=== PATIENT | female | born 1975 | race Caucasian/White ===

== ENCOUNTER 2018-08-23 09:52 | Inpatient (IN) | payer OTHER, MEDICAID, SELFPAY ==
[2018-08-23] VITALS (11 sets, daily range): BP systolic 111–141; BP diastolic 64–96; PULSE 92–120; RESP 16–27; TEMP 36.5–37.6; O2SAT 97–100; BMI 252.9; BMI 18.9
--- NOTE | 2018-08-23 09:57 | ED.NAVMDI ---
HPI - Nausea/Vomiting/Diarrhea General Chief complaint: Toxicology Problem Stated complaint: trouble breathing,throwing up Time Seen by Provider: 08/23/18 09:54 Source: patient and family Mode of arrival: ambulatory Limitations: no limitations History of Present Illness HPI Narrative: 43-year-old female smoker with history of heavy alcohol abuse and daily vomiting presents with the chief complaint agitation, tachycardia classic symptoms of withdrawal. She states that for quite some time she has been drinking 4-5 mixed drinks every day. She has not measure the amount of alcohol per drink but just pours and vodka. She states that she had her last drink about 48 hours ago and she would be continuing to drink except she can't stop vomiting. She frequently vomits daily but ran out of her antinausea medications. She has never gone through withdrawal before and has only been to detox once. Her primary care provider is in [place]. She complains headache and agitation as well as resting tremors, generalized abdominal pain nausea, vomiting and auditory, visual and dermatologic hallucinations. She denies any blood in her vomit nor dark stools MD complaint: nausea, vomiting and abdominal pain Onset (ago): hour(s) Description of Vomiting: watery Description of Diarrhea: none Associated Abdominal Pain: Yes Location of pain: diffuse Severity: moderate Quality: cramping and aching Pain Consistency: intermittent Relieving factors: none Exacerbating factors: eating Context: alcohol abuse Associated symptoms: headaches, loss of appetite, nausea/vomiting, anxiety and fatigue Related Data Home Medications Medication Instructions Recorded Confirmed hydroxyzine HCl 1 - 2 tab PO BID PRN 08/23/18 08/23/18 Allergies Allergy/AdvReac Type Severity Reaction Status Date / Time No Known Drug Allergies Allergy Verified 08/23/18 10:04 Review of Systems Constitutional Denies chills, Denies fever(s), Reports lethargy, Reports poor appetite and Reports weakness Eyes Denies change in vision, Denies eye discharge, Denies irritation and Denies loss of vision ENT Ears, Nose, Mouth, and Throat: Denies change in voice, Denies neck pain and Denies sore throat Cardiovascular Denies chest pain, Denies irregular heart rhythm, Denies lightheadedness, Reports palpitations, Reports dyspnea, Denies dyspnea on exertion and Denies orthopnea Respiratory Denies cough, Reports dyspnea, Denies dyspnea on exertion and Denies wheezing Gastrointestinal Gastrointestinal: Reports abdominal pain, Denies change in bowel habits, Denies diarrhea, Reports nausea and Reports vomiting Genitourinary Denies hematuria, Denies flank pain, Denies urinary incontinence and Denies urinary urgency Musculoskeletal Denies neck pain Integumentary/Breasts Denies pruritus, Denies erythema, Denies rash and Denies wounds Neurologic Denies confusion, Denies loss of vision and Reports weakness Psychiatric Reports anxiety, Denies confusion, Denies depression, Denies homicidal ideation and Denies suicidal ideation Endocrine Reports palpitations Hematologic/Lymphatic Denies easy bruising Allergic/Immunologic Denies wheezing [facility] Medical History ETOH abuse (Acute) Social History household members: spouse Smoking Status: Current every day smoker Exam Narrative Exam Narrative: GENERAL: 43-year-old female is disheveled and unkempt, tremulous, agitated and anxious HEAD: Atraumatic. Normocephalic. No temporal or scalp tenderness. EYES: Pupils equal round and reactive. Extraocular motions intact. No scleral icterus. No injection or drainage. ENT: Dry mucous membranes Nose without bleeding, purulent drainage or septal hematoma. Throat without erythema, tonsillar hypertrophy or exudate. Uvula midline. Airway patent. NECK: Trachea midline. No JVD or lymphadenopathy. Supple, nontender, no meningeal signs. CARDIOVASCULAR: Tachycardic but regular rhythm without murmurs, gallops, or rubs. RESPIRATORY: Clear to auscultation. Breath sounds equal bilaterally. No wheezes, rales, or rhonchi. GASTROINTESTINAL: Abdomen soft, generalized tenderness, nondistended. No hepato-splenomegaly, or palpable masses. No guarding. EXTREMITIES: No clubbing, cyanosis, or edema. No joint tenderness, effusion, or edema noted. BACK: Nontender without deformity or crepitance. No flank tenderness. NEURO: AOx3. SKIN: No rash or erythema. Diaphoresis Initial Vital Signs Initial Vital Signs: Vital Signs Temperature 98.4 F 08/23/18 09:53 Pulse Rate 120 H 08/23/18 09:53 Respiratory Rate 20 08/23/18 09:53 Blood Pressure 138/96 H 08/23/18 09:53 Pulse Oximetry 100 08/23/18 09:53 Course Course Narrative: Mesha for Alcohol Withdrawal from [facility] on 08/23/2018 All calculations should be rechecked by clinician prior to use RESULT SUMMARY: 33 points Patients with scores ?20 frequently require medication for withdrawal, and may also require admission to the ICU for observation for seizures or development of delirium tremens, and more frequent medication dosing. INPUTS: Nausea/vomiting ?> 5 = (More severe symptoms) Tremor ?> 4 = Moderate, with patient's arms extended Paroxysmal sweats ?> 3 = (More severe symptoms) Anxiety ?> 5 = (More severe symptoms) Agitation ?> 4 = Moderately fidgety and restless Tactile disturbances ?> 3 = Moderate itching, pin and needles, burning, or numbness Auditory disturbances ?> 3 = Moderate harshness or ability or frighten Visual disturbances ?> 2 = Mild sensitivity Headache/fullness in head ?> 3 = Moderate Orientation/clouding of sensorium ?> 1 = Can't do serial additions or is uncertain about date Orders Ordered: ED Orders 08/23/18 10:07 XR chest 1V Stat EKG-12 Lead Routine 08/23/18 11:00 A1C [Hemoglobin A1C %] Routine Complete Blood Count AUTO DIFF Stat Comprehensive Metabolic Panel Stat Ethanol (ETOH) Stat Hepatic (Liver) Panel Stat Lipase Stat Magnesium Stat Prothrombin Time INR Stat 08/23/18 12:20 ABG [Arterial Blood Gas] Stat 08/23/18 13:04 Urine Drug Screen, Rapid Stat 08/23/18 13:06 Ictotest Urine Stat Urinalysis and Microscopic Stat 08/23/18 13:37 Education, smoking cessation ONGOING 08/23/18 13:40 Consult to Dietitian, Adult Routine 08/23/18 13:41 Consult to Physical Therapy Evaluate & Treat 08/23/18 15:13 Consult to Dietitian, Adult Routine Consult to Credit And Collections Analyst Routine 08/23/18 20:00 Basic Metabolic Panel Stat 08/24/18 05:00 Complete Blood Count AUTO DIFF Routine Comprehensive Metabolic Panel Routine Acetaminophen (Tylenol) 650 mg PO Q6HR PRN PRN Reason: As Needed for Fever/Mild Pain Calcium Carbonate (Tums) 1,000 mg PO Q4HR PRN PRN Reason: Dyspepsia Last Admin: 08/23/18 14:30 Dose: 1,000 mg Enoxaparin Sodium (Lovenox) 40 mg SUBCUT DAILY [facility] Haloperidol (Haldol) 5 mg IV Q4HR PRN PRN Reason: Delerium Dextrose/Sodium Chloride (Dextrose 5%-0.9% Ns) 1,000 mls @ 200 mls/hr IV CONT [facility] Last Admin: 08/23/18 14:30 Dose: 200 mls/hr Ibuprofen (Advil) 600 mg PO Q6HR PRN PRN Reason: As Needed for Fever/Mild Pain Lorazepam (Ativan) 1 mg PO Q12HR [facility] Morphine Sulfate (Morphine) 2 mg IV Q4HR PRN PRN Reason: Pain, Moderate (4-6) Naloxone HCl (Narcan) 0.2 mg IV Q2MIN PRN PRN Reason: Opiate Reversal Ondansetron HCl (Zofran Odt) 4 mg PO Q8HR PRN PRN Reason: Nausea And Vomiting Ondansetron HCl (Zofran) 4 mg IV Q8HR PRN PRN Reason: Nausea And Vomiting Last Admin: 08/23/18 14:30 Dose: 4 mg Pantoprazole Sodium (Protonix) 40 mg IV DAILY [facility] Last Admin: 08/23/18 14:30 Dose: 40 mg Discontinued Medications Sodium Chloride (Normal Saline 0.9%) 1,000 mls @ 1,000 mls/hr IV BOLUS ONE Stop: 08/23/18 11:05 Last Infusion: 08/23/18 12:47 Dose: 0 mls/hr Infusion: 08/23/18 11:32 Dose: 1,000 mls/hr Infusion: 08/23/18 11:15 Dose: 300 mls/hr Admin: 08/23/18 11:10 Dose: 1,000 mls/hr Thiamine HCl 100 mg/ Dextrose 51 mls @ 204 mls/hr IV NOW ONE Stop: 08/23/18 10:07 Last Infusion: 08/23/18 11:32 Dose: 0 mls/hr Admin: 08/23/18 11:10 Dose: 204 mls/hr Sodium Chloride (Normal Saline 0.9%) 1,000 mls @ 1,000 mls/hr IV BOLUS ONE Stop: 08/23/18 13:10 Last Infusion: 08/23/18 14:06 Dose: 0 mls/hr Admin: 08/23/18 12:50 Dose: 1,000 mls/hr Lorazepam (Ativan) 2 mg IV NOW ONE Stop: 08/23/18 10:07 Last Admin: 08/23/18 11:10 Dose: 2 mg Ondansetron HCl (Zofran) 4 mg IV NOW ONE Stop: 08/23/18 11:17 Last Admin: 08/23/18 11:17 Dose: 4 mg Thiamine HCl (Vitamin B-1) 100 mg IM DAILY [facility] Last Admin: 08/23/18 14:30 Dose: Not Given Vital Signs - 8 hr 08/23/18 09:53 08/23/18 10:30 08/23/18 11:11 Temperature 98.4 F Pulse Rate 120 H 115 H 107 H Respiratory Rate 20 18 16 Blood Pressure 138/96 H Blood Pressure [Left Arm] 141/89 H 139/89 Pulse Oximetry 100 100 99 08/23/18 11:33 08/23/18 12:00 08/23/18 12:45 Temperature Pulse Rate 113 H 118 H 112 H Respiratory Rate 26 H 20 25 H Blood Pressure Blood Pressure [Left Arm] 135/64 130/89 124/91 H Pulse Oximetry 100 99 100 08/23/18 13:00 08/23/18 13:30 Temperature Pulse Rate 110 H 110 H Respiratory Rate 22 20 Blood Pressure Blood Pressure [Left Arm] 127/84 116/84 Pulse Oximetry 100 97 MDM - Nausea/Vomiting/Diarrhea Lab Data Result diagrams: 08/23/18 11:00 08/23/18 11:00 Lab Results 08/23/18 08/23/18 08/23/18 Range/Units 11:00 11:00 11:00 WBC 15.7 H (4.5-11.0) X10^3/uL RBC 4.11 (4.0-5.2) X10^6/uL Hgb 13.8 (12.0-16.0) g/dL Hct 42.2 (36-46) % MCV 102.7 H (80-100) fL MCH 33.5 (26-34) PG MCHC 32.6 (30-36) % RDW 13.4 (11.6-14.8) % Plt Count 230 (150-400) X10^3/uL Neut % (Auto) 89.8 H (50-75) % Lymph % (Auto) 5.3 L (25-40) % Grady % (Auto) 4.5 (3-14) % Eos % (Auto) 0.0 L (2-4) % Baso % (Auto) 0.4 (0-2) % Neut # (Auto) 37661 H (8621-3589) /uL Lymph # (Auto) 800 L (9062-1672) /uL Grady # (Auto) 700 (0-900) /uL Eos # (Auto) 0 (0-450) /uL Baso # (Auto) 100 (0-100) /uL PT 9.8 L (10.1-12.7) SECONDS INR 0.9 (0.9-1.3) ABG pH (7.35-7.45) ABG pCO2 (35-45) mmHg ABG pO2 (80-100) mmHg ABG HCO3 (22-26) mmol/L ABG Total CO2 (21-31) mmol/L ABG O2 Saturation (95-100) % ABG Base Excess (-2-2) mmol/L FiO2 Sodium 138 (137-145) mmol/L Potassium 5.7 H (3.4-5.1) mmol/L Chloride 95 L (98-107) mmol/L Carbon Dioxide 7 L* (22-32) mmol/L BUN 25 H (7-17) mg/dL Creatinine 1.70 H (0.52-1.04) mg/dL Estimated GFR 33.1 L (>60) mL/min BUN/Creatinine Ratio 14.7 (6-22) Glucose 276 H (70-100) mg/dL Hemoglobin A1c (4.0-6.0) % Calcium 8.3 L (8.4-10.2) mg/dL Magnesium 2.2 (1.6-2.3) mg/dL Total Bilirubin 1.1 (0.2-1.3) mg/dL Conjugated Bilirubin 0.0 (0.0-0.3) md/dL Unconjugated Bilirubin 0.6 (0.0-1.1) mg/dL AST 108 H (14-36) IU/L ALT 70 H (9-52) IU/L Alkaline Phosphatase 73 (38-126) U/L Total Protein 8.8 H (6.3-8.2) g/dL Albumin 5.5 H (3.5-5.0) g/dL Globulin 3.3 (1.7-4.1) g/dL Albumin/Globulin Ratio 1.7 (1.0-2.8) Lipase 55 (23-300) U/L Urine Color Urine Appearance Urine pH (4.5-8.0) Ur Specific [place] (1.000-1.035) Urine Protein (Negative) Urine Glucose (UA) (Negative) g/dL Urine Ketones (NEGATIVE) Urine Occult Blood (Negative) Urine Nitrate (Negative) Urine Bilirubin (NEGATIVE) Urine Ictotest (Negative) Urine Urobilinogen (0.2) E.U./dL Ur Leukocyte Esterase (NEGATIVE) Urine RBC (0-5/HPF) Urine WBC (0-5/HPF) Ur Squamous Epith Cells (0-5/HPF) Amorphous Sediment Urine Bacteria (None) Ur Culture Indicated? Urine Opiates Screen (Negative) Ur Oxycodone Screen (Negative) Urine Methadone Screen (Negative) Ur Barbiturates Screen (Negative) U Tricyclic Antidepress (Negative) Ur Phencyclidine Scrn (Negative) Ur Amphetamines Screen (Negative) U Methamphetamines Scrn (Negative) Ur MDMA Scrn (Ecstasy) (Negative) U Benzodiazepines Scrn (Negative) Urine Cocaine Screen (Negative) U Marijuana (THC) Screen (Negative) Ethyl Alcohol < 10 mg/dL 08/23/18 08/23/18 08/23/18 Range/Units 11:00 12:20 13:04 WBC (4.5-11.0) X10^3/uL RBC (4.0-5.2) X10^6/uL Hgb (12.0-16.0) g/dL Hct (36-46) % MCV (80-100) fL MCH (26-34) PG MCHC (30-36) % RDW (11.6-14.8) % Plt Count (150-400) X10^3/uL Neut % (Auto) (50-75) % Lymph % (Auto) (25-40) % [place]ady % (Auto) (3-14) % Eos % (Auto) (2-4) % Baso % (Auto) (0-2) % Neut # (Auto) (9964-5636) /uL Lymph # (Auto) (4905-1968) /uL [place]ady # (Auto) (0-900) /uL Eos # (Auto) (0-450) /uL Baso # (Auto) (0-100) /uL PT (10.1-12.7) SECONDS INR (0.9-1.3) ABG pH 7.23 L* (7.35-7.45) ABG pCO2 14.8 L* (35-45) mmHg ABG pO2 127 H (80-100) mmHg ABG HCO3 6 L (22-26) mmol/L ABG Total CO2 7 L (21-31) mmol/L ABG O2 Saturation 98 (95-100) % ABG Base Excess -21.0 L (-2-2) mmol/L FiO2 21 Sodium (137-145) mmol/L Potassium (3.4-5.1) mmol/L Chloride (98-107) mmol/L Carbon Dioxide (22-32) mmol/L BUN (7-17) mg/dL Creatinine (0.52-1.04) mg/dL Estimated GFR (>60) mL/min BUN/Creatinine Ratio (6-22) Glucose (70-100) mg/dL Hemoglobin A1c 5.1 (4.0-6.0) % Calcium (8.4-10.2) mg/dL Magnesium (1.6-2.3) mg/dL Total Bilirubin (0.2-1.3) mg/dL Conjugated Bilirubin (0.0-0.3) md/dL Unconjugated Bilirubin (0.0-1.1) mg/dL AST (14-36) IU/L ALT (9-52) IU/L Alkaline Phosphatase (38-126) U/L Total Protein (6.3-8.2) g/dL Albumin (3.5-5.0) g/dL Globulin (1.7-4.1) g/dL Albumin/Globulin Ratio (1.0-2.8) Lipase (23-300) U/L Urine Color Urine Appearance Urine pH (4.5-8.0) Ur Specific [place] (1.000-1.035) Urine Protein (Negative) Urine Glucose (UA) (Negative) g/dL Urine Ketones (NEGATIVE) Urine Occult Blood (Negative) Urine Nitrate (Negative) Urine Bilirubin (NEGATIVE) Urine Ictotest (Negative) Urine Urobilinogen (0.2) E.U./dL Ur Leukocyte Esterase (NEGATIVE) Urine RBC (0-5/HPF) Urine WBC (0-5/HPF) Ur Squamous Epith Cells (0-5/HPF) Amorphous Sediment Urine Bacteria (None) Ur Culture Indicated? Urine Opiates Screen Negative (Negative) Ur Oxycodone Screen Negative (Negative) Urine Methadone Screen Negative (Negative) Ur Barbiturates Screen Negative (Negative) U Tricyclic Antidepress Negative (Negative) Ur Phencyclidine Scrn Negative (Negative) Ur Amphetamines Screen Negative (Negative) U Methamphetamines Scrn Negative (Negative) Ur MDMA Scrn (Ecstasy) Negative (Negative) U Benzodiazepines Scrn Negative (Negative) Urine Cocaine Screen Negative (Negative) U Marijuana (THC) Screen Positive H (Negative) Ethyl Alcohol mg/dL 08/23/18 Range/Units 13:06 WBC (4.5-11.0) X10^3/uL RBC (4.0-5.2) X10^6/uL Hgb (12.0-16.0) g/dL Hct (36-46) % MCV (80-100) fL MCH (26-34) PG MCHC (30-36) % RDW (11.6-14.8) % Plt Count (150-400) X10^3/uL Neut % (Auto) (50-75) % Lymph % (Auto) (25-40) % [place] % (Auto) (3-14) % Eos % (Auto) (2-4) % Baso % (Auto) (0-2) % Neut # (Auto) (9855-0031) /uL Lymph # (Auto) (6206-3167) /uL [place] # (Auto) (0-900) /uL Eos # (Auto) (0-450) /uL Baso # (Auto) (0-100) /uL PT (10.1-12.7) SECONDS INR (0.9-1.3) ABG pH (7.35-7.45) ABG pCO2 (35-45) mmHg ABG pO2 (80-100) mmHg ABG HCO3 (22-26) mmol/L ABG Total CO2 (21-31) mmol/L ABG O2 Saturation (95-100) % ABG Base Excess (-2-2) mmol/L FiO2 Sodium (137-145) mmol/L Potassium (3.4-5.1) mmol/L Chloride (98-107) mmol/L Carbon Dioxide (22-32) mmol/L BUN (7-17) mg/dL Creatinine (0.52-1.04) mg/dL Estimated GFR (>60) mL/min BUN/Creatinine Ratio (6-22) Glucose (70-100) mg/dL Hemoglobin A1c (4.0-6.0) % Calcium (8.4-10.2) mg/dL Magnesium (1.6-2.3) mg/dL Total Bilirubin (0.2-1.3) mg/dL Conjugated Bilirubin (0.0-0.3) md/dL Unconjugated Bilirubin (0.0-1.1) mg/dL AST (14-36) IU/L ALT (9-52) IU/L Alkaline Phosphatase (38-126) U/L Total Protein (6.3-8.2) g/dL Albumin (3.5-5.0) g/dL Globulin (1.7-4.1) g/dL Albumin/Globulin Ratio (1.0-2.8) Lipase (23-300) U/L Urine Color Yellow Urine Appearance Clear Urine pH 5.5 (4.5-8.0) Ur Specific [place] 1.025 (1.000-1.035) Urine Protein 1+ H (Negative) Urine Glucose (UA) Negative (Negative) g/dL Urine Ketones 3+ H (NEGATIVE) Urine Occult Blood 1+ H (Negative) Urine Nitrate Negative (Negative) Urine Bilirubin 1+ H (NEGATIVE) Urine Ictotest Negative (Negative) Urine Urobilinogen 0.2 (0.2) E.U./dL Ur Leukocyte Esterase Negative (NEGATIVE) Urine RBC 0-1/hpf (0-5/HPF) Urine WBC 0-1/hpf (0-5/HPF) Ur Squamous Epith Cells 0-1 /hpf (0-5/HPF) Amorphous Sediment 1+ Urine Bacteria None seen (None) Ur Culture Indicated? Cult not indicated Urine Opiates Screen (Negative) Ur Oxycodone Screen (Negative) Urine Methadone Screen (Negative) Ur Barbiturates Screen (Negative) U Tricyclic Antidepress (Negative) Ur Phencyclidine Scrn (Negative) Ur Amphetamines Screen (Negative) U Methamphetamines Scrn (Negative) Ur MDMA Scrn (Ecstasy) (Negative) U Benzodiazepines Scrn (Negative) Urine Cocaine Screen (Negative) U Marijuana (THC) Screen (Negative) Ethyl Alcohol mg/dL Imaging Data Chest x-ray: Radiologist's impression: [address] [id number] XRay Report Signed Patient: Cristal Matias JMR#: [id number] : 1975Acct:[id number] Age/Sex: 43 / FDate of Service: 08/23/18 Loc: ED Accession Number: [id number] Procedure: XR chest 1V Ordering Provider: Aidan Grey D.O. PROCEDURE: XR CHEST 1V INDICATIONS: tachycardia, SOB TECHNIQUE: One view of the chest was acquired. COMPARISON: None. FINDINGS: Surgical changes and devices: None. Lungs and pleura: Lungs are clear. No pleural effusions or pneumothorax. Mediastinum: Mediastinal contours appear normal. Heart size is normal. Mild prominence of pulmonary vasculature noted. Bones and chest wall: Cervical spinal fusion hardware noted. IMPRESSION: No acute cardiopulmonary disease. Dictated by: Zohaib Rhoades M.D. on 08/23/2018 at 10:42 Approved by: Zohaib Rhoades M.D. on 08/23/2018 at 10:43 ECG Data Attestation: I personally reviewed and interpreted this ECG as follows: Prior ECG tracings: not available for review Interpretation: EKG is a sinus tachycardia with rate [117 ] and free of any signs of ischemia or ectopy. No ST segmental elevation or depression. No T wave inversions Critical Care Time Critical Care Time: Yes Total Critical Care Time: 30 Attestation: The high probability of a clinically significant, sudden or life threatening deterioration of the [cardiovascular] system(s) required my full and direct attention, intervention and personal management. The aggregate critical care time was [30] minutes. 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
--- NOTE | 2018-08-23 10:07 | DI.RAD.S_ITS ---
PROCEDURE: XR CHEST 1V INDICATIONS: tachycardia, SOB TECHNIQUE: One view of the chest was acquired. COMPARISON: None. FINDINGS: Surgical changes and devices: None. Lungs and pleura: Lungs are clear. No pleural effusions or pneumothorax. Mediastinum: Mediastinal contours appear normal. Heart size is normal. Mild prominence of pulmonary vasculature noted. Bones and chest wall: Cervical spinal fusion hardware noted. IMPRESSION: No acute cardiopulmonary disease. Dictated by: Zohaib Rhoades M.D. on 08/23/2018 at 10:42 Approved by: Zohaib Rhoadse M.D. on 08/23/2018 at 10:43
--- NOTE | 2018-08-23 10:11 | ED_ITS ---
HPI - Nausea/Vomiting/Diarrhea General Chief complaint: Toxicology Problem Stated complaint: trouble breathing,throwing up Time Seen by Provider: 08/23/18 09:54 Source: patient and family Mode of arrival: ambulatory Limitations: no limitations History of Present Illness HPI Narrative: 43-year-old female smoker with history of heavy alcohol abuse and daily vomiting presents with the chief complaint agitation, tachycardia classic symptoms of withdrawal. She states that for quite some time she has been drinking 4-5 mixed drinks every day. She has not measure the amount of alcohol per drink but just pours and vodka. She states that she had her last drink about 48 hours ago and she would be continuing to drink except she can't stop vomiting. She frequently vomits daily but ran out of her antinausea medicati ons. She has never gone through withdrawal before and has only been to detox once. Her primary care provider is in [place]. She complains headache and agitation as well as resting tremors, generalized abdominal pain nausea, vomiting and auditory, visual and dermatologic hallucinations. She denies any blood in her vomit nor dark stools MD complaint: nausea, vomiting and abdominal pain Onset (ago): hour(s) Description of Vomiting: watery Description of Diarrhea: none Associated Abdominal Pain: Yes Location of pain: diffuse Severity: moderate Quality: cramping and aching Pain Consistency: intermittent Relieving factors: none Exacerbating factors: eating Context: alcohol abuse Associated symptoms: headaches, loss of appetite, nausea/vomiting, anxiety and fatigue Related Data Home Medications Medication Instructions Recorded Confirmed hydroxyzine HCl 1 - 2 tab PO BID PRN 08/23/18 08/23/18 Allergies Allergy/AdvReac Type Severity Reaction Status Date / Time No Known Drug Allergies Allergy Verified 08/23/18 10:04 Review of Systems Constitutional Denies chills, Denies fever(s), Reports lethargy, Reports poor appetite and Reports weakness Eyes Denies change in vision, Denies eye discharge, Denies irritation and Denies loss of vision ENT Ears, Nose, Mouth, and Throat: Denies change in voice, Denies neck pain and Denies sore throat Cardiovascular Denies chest pain, Denies irregular heart rhythm, Denies lightheadedness, Reports palpitations, Reports dyspnea, Denies dyspnea on exertion and Denies orthopnea Respiratory Denies cough, Reports dyspnea, Denies dyspnea on exertion and Denies wheezing Gastrointestinal Gastrointestinal: Reports abdominal pain, Denies change in bowel habits, Denies diarrhea, Reports nausea and Reports vomiting Genitourinary Denies hematuria, Denies flank pain, Denies urinary incontinence and Denies urinary urgency Musculoskeletal Denies neck pain Integumentary/Breasts Denies pruritus, Denies erythema, Denies rash and Denies wounds Neurologic Denies confusion, Denies loss of vision and Reports weakness Psychiatric Reports anxiety, Denies confusion, Denies depression, Denies homicidal ideation and Denies suicidal ideation Endocrine Reports palpitations Hematologic/Lymphatic Denies easy bruising Allergic/Immunologic Denies wheezing [facility] Medical History ETOH abuse (Acute) Social History household members: spouse Smoking Status: Current every day smoker Exam Narrative Exam Narrative: GENERAL: 43-year-old female is disheveled and unkempt, tremulous, agitated and anxious HEAD: Atraumatic. Normocephalic. No temporal or scalp tenderness. EYES: Pupils equal round and reactive. Extraocular motions intact. No scleral icterus. No injection or drainage. ENT: Dry mucous membranes Nose without bleeding, purulent drainage or septal hematoma. Throat without erythema, tonsillar hypertrophy or exudate. Uvula midline. Airway patent. NECK: Trachea midline. No JVD or lymphadenopathy. Supple, nontender, no meningeal signs. CARDIOVASCULAR: Tachycardic but regular rhythm without murmurs, gallops, or rubs. RESPIRATORY: Clear to auscultation. Breath sounds equal bilaterally. No wheezes, rales, or rhonchi. GASTROINTESTINAL: Abdomen soft, generalized tenderness, nondistended. No hepato- splenomegaly, or palpable masses. No guarding. EXTREMITIES: No clubbing, cyanosis, or edema. No joint tenderness, effusion, or edema noted. BACK: Nontender without deformity or crepitance. No flank tenderness. NEURO: AOx3. SKIN: No rash or erythema. Diaphoresis Initial Vital Signs Initial Vital Signs: Vital Signs Temperature 98.4 F 08/23/18 09:53 Pulse Rate 120 H 08/23/18 09:53 Respiratory Rate 20 08/23/18 09:53 Blood Pressure 138/96 H 08/23/18 09:53 Pulse Oximetry 100 08/23/18 09:53 Course Course Narrative: [facility] for Alcohol Withdrawal from [employer] on 08/23/2018 All calculations should be rechecked by clinician prior to use RESULT SUMMARY: 33 points Patients with scores ?20 frequently require medication for withdrawal, and may also require admission to the ICU for observation for seizures or development of delirium tremens, and more frequent medication dosing. INPUTS: Nausea/vomiting ?> 5 = (More severe symptoms) Tremor ?> 4 = Moderate, with patient's arms extended Paroxysmal sweats ?> 3 = (More severe symptoms) Anxiety ?> 5 = (More severe symptoms) Agitation ?> 4 = Moderately fidgety and restless Tactile disturbances ?> 3 = Moderate itching, pin and needles, burning, or nu mbness Auditory disturbances ?> 3 = Moderate harshness or ability or frighten Visual disturbances ?> 2 = Mild sensitivity Headache/fullness in head ?> 3 = Moderate Orientation/clouding of sensorium ?> 1 = Can't do serial additions or is uncertain about date Orders Ordered: ED Orders 08/23/18 10:07 XR chest 1V Stat EKG-12 Lead Routine 08/23/18 11:00 A1C [Hemoglobin A1C %] Routine Complete Blood Count AUTO DIFF Stat Comprehensive Metabolic Panel Stat Ethanol (ETOH) Stat Hepatic (Liver) Panel Stat Lipase Stat Magnesium Stat Prothrombin Time INR Stat 08/23/18 12:20 ABG [Arterial Blood Gas] Stat 08/23/18 13:04 Urine Drug Screen, Rapid Stat 08/23/18 13:06 Ictotest Urine Stat Urinalysis and Microscopic Stat 08/23/18 13:37 Education, smoking cessation ONGOING 08/23/18 13:40 Consult to Dietitian, Adult Routine 08/23/18 13:41 Consult to Physical Therapy Evaluate & Treat 08/23/18 15:13 Consult to Dietitian, Adult Routine Consult to Comptroller Routine 08/23/18 20:00 Basic Metabolic Panel Stat 08/24/18 05:00 Complete Blood Count AUTO DIFF Routine Comprehensive Metabolic Panel Routine Acetaminophen (Tylenol) 650 mg PO Q6HR PRN PRN Reason: As Needed for Fever/Mild Pain Calcium Carbonate (Tums) 1,000 mg PO Q4HR PRN PRN Reason: Dyspepsia Last Admin: 08/23/18 14:30 Dose: 1,000 mg Enoxaparin Sodium (Lovenox) 40 mg SUBCUT DAILY [facility] Haloperidol (Haldol) 5 mg IV Q4HR PRN PRN Reason: Delerium Dextrose/Sodium Chloride (Dextrose 5%-0.9% Ns) 1,000 mls @ 200 mls/hr IV CONT [facility] Last Admin: 08/23/18 14:30 Dose: 200 mls/hr Ibuprofen (Advil) 600 mg PO Q6HR PRN PRN Reason: As Needed for Fever/Mild Pain Lorazepam (Ativan) 1 mg PO Q12HR [facility] Morphine Sulfate (Morphine) 2 mg IV Q4HR PRN PRN Reason: Pain, Moderate (4-6) Naloxone HCl (Narcan) 0.2 mg IV Q2MIN PRN PRN Reason: Opiate Reversal Ondansetron HCl (Zofran Odt) 4 mg PO Q8HR PRN PRN Reason: Nausea And Vomiting Ondansetron HCl (Zofran) 4 mg IV Q8HR PRN PRN Reason: Nausea And Vomiting Last Admin: 08/23/18 14:30 Dose: 4 mg Pantoprazole Sodium (Protonix) 40 mg IV DAILY [facility] Last Admin: 08/23/18 14:30 Dose: 40 mg Discontinued Medications Sodium Chloride (Normal Saline 0.9%) 1,000 mls @ 1,000 mls/hr IV BOLUS ONE Stop: 08/23/18 11:05 Last Infusion: 08/23/18 12:47 Dose: 0 mls/hr Infusion: 08/23/18 11:32 Dose: 1,000 mls/hr Infusion: 08/23/18 11:15 Dose: 300 mls/hr Admin: 08/23/18 11:10 Dose: 1,000 mls/hr Thiamine HCl 100 mg/ Dextrose 51 mls @ 204 mls/hr IV NOW ONE Stop: 08/23/18 10:07 Last Infusion: 08/23/18 11:32 Dose: 0 mls/hr Admin: 08/23/18 11:10 Dose: 204 mls/hr Sodium Chloride (Normal Saline 0.9%) 1,000 mls @ 1,000 mls/hr IV BOLUS ONE Stop: 08/23/18 13:10 Last Infusion: 08/23/18 14:06 Dose: 0 mls/hr Admin: 08/23/18 12:50 Dose: 1,000 mls/hr Lorazepam (Ativan) 2 mg IV NOW ONE Stop: 08/23/18 10:07 Last Admin: 08/23/18 11:10 Dose: 2 mg Ondansetron HCl (Zofran) 4 mg IV NOW ONE Stop: 08/23/18 11:17 Last Admin: 08/23/18 11:17 Dose: 4 mg Thiamine HCl (Vitamin B-1) 100 mg IM DAILY [facility] Last Admin: 08/23/18 14:30 Dose: Not Given Vital Signs - 8 hr 08/23/18 09:53 08/23/18 10:30 08/23/18 11:11 Temperature 98.4 F Pulse Rate 120 H 115 H 107 H Respiratory Rate 20 18 16 Blood Pressure 138/96 H Blood Pressure [Left Arm] 141/89 H 139/89 Pulse Oximetry 100 100 99 08/23/18 11:33 08/23/18 12:00 08/23/18 12:45 Temperature Pulse Rate 113 H 118 H 112 H Respiratory Rate 26 H 20 25 H Blood Pressure Blood Pressure [Left Arm] 135/64 130/89 124/91 H Pulse Oximetry 100 99 100 08/23/18 13:00 08/23/18 13:30 Temperature Pulse Rate 110 H 110 H Respiratory Rate 22 20 Blood Pressure Blood Pressure [Left Arm] 127/84 116/84 Pulse Oximetry 100 97 MDM - Nausea/Vomiting/Diarrhea Lab Data Result diagrams: 08/23/18 11:00 08/23/18 11:00 Lab Results 08/23/18 08/23/18 08/23/18 Range/Units 11:00 11:00 11:00 WBC 15.7 H (4.5-11.0) X10^3/uL RBC 4.11 (4.0-5.2) X10^6/uL Hgb 13.8 (12.0-16.0) g/dL Hct 42.2 (36-46) % MCV 102.7 H (80-100) fL MCH 33.5 (26-34) PG MCHC 32.6 (30-36) % RDW 13.4 (11.6-14.8) % Plt Count 230 (150-400) X10^3/uL Neut % (Auto) 89.8 H (50-75) % Lymph % (Auto) 5.3 L (25-40) % [place] % (Auto) 4.5 (3-14) % Eos % (Auto) 0.0 L (2-4) % Baso % (Auto) 0.4 (0-2) % Neut # (Auto) 68051 H (5897-3208) /uL Lymph # (Auto) 800 L (2430-9848) /uL [place] # (Auto) 700 (0-900) /uL Eos # (Auto) 0 (0-450) /uL Baso # (Auto) 100 (0-100) /uL PT 9.8 L (10.1-12.7) SECONDS INR 0.9 (0.9-1.3) ABG pH (7.35-7.45) ABG pCO2 (35-45) mmHg ABG pO2 (80-100) mmHg ABG HCO3 (22-26) mmol/L ABG Total CO2 (21-31) mmol/L ABG O2 Saturation (95-100) % ABG Base Excess (-2-2) mmol/L FiO2 Sodium 138 (137-145) mmol/L Potassium 5.7 H (3.4-5.1) mmol/L Chloride 95 L (98-107) mmol/L Carbon Dioxide 7 L* (22-32) mmol/L BUN 25 H (7-17) mg/dL Creatinine 1.70 H (0.52-1.04) mg/dL Estimated GFR 33.1 L (>60) mL/min BUN/Creatinine Ratio 14.7 (6-22) Glucose 276 H (70-100) mg/dL Hemoglobin A1c (4.0-6.0) % Calcium 8.3 L (8.4-10.2) mg/dL Magnesium 2.2 (1.6-2.3) mg/dL Total Bilirubin 1.1 (0.2-1.3) mg/dL Conjugated Bilirubin 0.0 (0.0-0.3) md/dL Unconjugated Bilirubin 0.6 (0.0-1.1) mg/dL AST 108 H (14-36) IU/L ALT 70 H (9-52) IU/L Alkaline Phosphatase 73 (38-126) U/L Total Protein 8.8 H (6.3-8.2) g/dL Albumin 5.5 H (3.5-5.0) g/dL Globulin 3.3 (1.7-4.1) g/dL Albumin/Globulin Ratio 1.7 (1.0-2.8) Lipase 55 (23-300) U/L Urine Color Urine Appearance Urine pH (4.5-8.0) Ur Specific [place] (1.000-1.035) Urine Protein (Negative) Urine Glucose (UA) (Negative) g/dL Urine Ketones (NEGATIVE) Urine Occult Blood (Negative) Urine Nitrate (Negative) Urine Bilirubin (NEGATIVE) Urine Ictotest (Negative) Urine Urobilinogen (0.2) E.U./dL Ur Leukocyte Esterase (NEGATIVE) Urine RBC (0-5/HPF) Urine WBC (0-5/HPF) Ur Squamous Epith Cells (0-5/HPF) Amorphous Sediment Urine Bacteria (None) Ur Culture Indicated? Urine Opiates Screen (Negative) Ur Oxycodone Screen (Negative) Urine Methadone Screen (Negative) Ur Barbiturates Screen (Negative) U Tricyclic Antidepress (Negative) Ur Phencyclidine Scrn (Negative) Ur Amphetamines Screen (Negative) U Methamphetamines Scrn (Negative) Ur MDMA Scrn (Ecstasy) (Negative) U Benzodiazepines Scrn (Negative) Urine Cocaine Screen (Negative) U Marijuana (THC) Screen (Negative) Ethyl Alcohol < 10 mg/dL 08/23/18 08/23/18 08/23/18 Range/Units 11:00 12:20 13:04 WBC (4.5-11.0) X10^3/uL RBC (4.0-5.2) X10^6/uL Hgb (12.0-16.0) g/dL Hct (36-46) % MCV (80-100) fL MCH (26-34) PG MCHC (30-36) % RDW (11.6-14.8) % Plt Count (150-400) X10^3/uL Neut % (Auto) (50-75) % Lymph % (Auto) (25-40) % [place] % (Auto) (3-14) % Eos % (Auto) (2-4) % Baso % (Auto) (0-2) % Neut # (Auto) (2784-2687) /uL Lymph # (Auto) (2223-0190) /uL [place] # (Auto) (0-900) /uL Eos # (Auto) (0-450) /uL Baso # (Auto) (0-100) /uL PT (10.1-12.7) SECONDS INR (0.9-1.3) ABG pH 7.23 L* (7.35-7.45) ABG pCO2 14.8 L* (35-45) mmHg ABG pO2 127 H (80-100) mmHg ABG HCO3 6 L (22-26) mmol/L ABG Total CO2 7 L (21-31) mmol/L ABG O2 Saturation 98 (95-100) % ABG Base Excess -21.0 L (-2-2) mmol/L FiO2 21 Sodium (137-145) mmol/L Potassium (3.4-5.1) mmol/L Chloride (98-107) mmol/L Carbon Dioxide (22-32) mmol/L BUN (7-17) mg/dL Creatinine (0.52-1.04) mg/dL Estimated GFR (>60) mL/min BUN/Creatinine Ratio (6-22) Glucose (70-100) mg/dL Hemoglobin A1c 5.1 (4.0-6.0) % Calcium (8.4-10.2) mg/dL Magnesium (1.6-2.3) mg/dL Total Bilirubin (0.2-1.3) mg/dL Conjugated Bilirubin (0.0-0.3) md/dL Unconjugated Bilirubin (0.0-1.1) mg/dL AST (14-36) IU/L ALT (9-52) IU/L Alkaline Phosphatase (38-126) U/L Total Protein (6.3-8.2) g/dL Albumin (3.5-5.0) g/dL Globulin (1.7-4.1) g/dL Albumin/Globulin Ratio (1.0-2.8) Lipase (23-300) U/L Urine Color Urine Appearance Urine pH (4.5-8.0) Ur Specific [place] (1.000-1.035) Urine Protein (Negative) Urine Glucose (UA) (Negative) g/dL Urine Ketones (NEGATIVE) Urine Occult Blood (Negative) Urine Nitrate (Negative) Urine Bilirubin (NEGATIVE) Urine Ictotest (Negative) Urine Urobilinogen (0.2) E.U./dL Ur Leukocyte Esterase (NEGATIVE) Urine RBC (0-5/HPF) Urine WBC (0-5/HPF) Ur Squamous Epith Cells (0-5/HPF) Amorphous Sediment Urine Bacteria (None) Ur Culture Indicated? Urine Opiates Screen Negative (Negative) Ur Oxycodone Screen Negative (Negative) Urine Methadone Screen Negative (Negative) Ur Barbiturates Screen Negative (Negative) U Tricyclic Antidepress Negative (Negative) Ur Phencyclidine Scrn Negative (Negative) Ur Amphetamines Screen Negative (Negative) U Methamphetamines Scrn Negative (Negative) Ur MDMA Scrn (Ecstasy) Negative (Negative) U Benzodiazepines Scrn Negative (Negative) Urine Cocaine Screen Negative (Negative) U Marijuana (THC) Screen Positive H (Negative) Ethyl Alcohol mg/dL 08/23/18 Range/Units 13:06 WBC (4.5-11.0) X10^3/uL RBC (4.0-5.2) X10^6/uL Hgb (12.0-16.0) g/dL Hct (36-46) % MCV (80-100) fL MCH (26-34) PG MCHC (30-36) % RDW (11.6-14.8) % Plt Count (150-400) X10^3/uL Neut % (Auto) (50-75) % Lymph % (Auto) (25-40) % [place] % (Auto) (3-14) % Eos % (Auto) (2-4) % Baso % (Auto) (0-2) % Neut # (Auto) (7777-9872) /uL Lymph # (Auto) (9680-3039) /uL [place] # (Auto) (0-900) /uL Eos # (Auto) (0-450) /uL Baso # (Auto) (0-100) /uL PT (10.1-12.7) SECONDS INR (0.9-1.3) ABG pH (7.35-7.45) ABG pCO2 (35-45) mmHg ABG pO2 (80-100) mmHg ABG HCO3 (22-26) mmol/L ABG Total CO2 (21-31) mmol/L ABG O2 Saturation (95-100) % ABG Base Excess (-2-2) mmol/L FiO2 Sodium (137-145) mmol/L Potassium (3.4-5.1) mmol/L Chloride (98-107) mmol/L Carbon Dioxide (22-32) mmol/L BUN (7-17) mg/dL Creatinine (0.52-1.04) mg/dL Estimated GFR (>60) mL/min BUN/Creatinine Ratio (6-22) Glucose (70-100) mg/dL Hemoglobin A1c (4.0-6.0) % Calcium (8.4-10.2) mg/dL Magnesium (1.6-2.3) mg/dL Total Bilirubin (0.2-1.3) mg/dL Conjugated Bilirubin (0.0-0.3) md/dL Unconjugated Bilirubin (0.0-1.1) mg/dL AST (14-36) IU/L ALT (9-52) IU/L Alkaline Phosphatase (38-126) U/L Total Protein (6.3-8.2) g/dL Albumin (3.5-5.0) g/dL Globulin (1.7-4.1) g/dL Albumin/Globulin Ratio (1.0-2.8) Lipase (23-300) U/L Urine Color Yellow Urine Appearance Clear Urine pH 5.5 (4.5-8.0) Ur Specific [place] 1.025 (1.000-1.035) Urine Protein 1+ H (Negative) Urine Glucose (UA) Negative (Negative) g/dL Urine Ketones 3+ H (NEGATIVE) Urine Occult Blood 1+ H (Negative) Urine Nitrate Negative (Negative) Urine Bilirubin 1+ H (NEGATIVE) Urine Ictotest Negative (Negative) Urine Urobilinogen 0.2 (0.2) E.U./dL Ur Leukocyte Esterase Negative (NEGATIVE) Urine RBC 0-1/hpf (0-5/HPF) Urine WBC 0-1/hpf (0-5/HPF) Ur Squamous Epith Cells 0-1 /hpf (0-5/HPF) Amorphous Sediment 1+ Urine Bacteria None seen (None) Ur Culture Indicated? Cult not indicated Urine Opiates Screen (Negative) Ur Oxycodone Screen (Negative) Urine Methadone Screen (Negative) Ur Barbiturates Screen (Negative) U Tricyclic Antidepress (Negative) Ur Phencyclidine Scrn (Negative) Ur Amphetamines Screen (Negative) U Methamphetamines Scrn (Negative) Ur MDMA Scrn (Ecstasy) (Negative) U Benzodiazepines Scrn (Negative) Urine Cocaine Screen (Negative) U Marijuana (THC) Screen (Negative) Ethyl Alcohol mg/dL Imaging Data Chest x-ray: Radiologist's impression: [address] [id number] XRay Report Signed Patient: Cristal Matias JMR#: [id number] : 1975Acct:[id number] Age/Sex: 43 / FDate of Service: 08/23/18 Loc: ED Accession Number: [id number] Procedure: XR chest 1V Ordering Provider: iAdan Grey D.O. PROCEDURE: XR CHEST 1V INDICATIONS: tachycardia, SOB TECHNIQUE: One view of the chest was acquired. COMPARISON: None. FINDINGS: Surgical changes and devices: None. Lungs and pleura: Lungs are clear. No pleural effusions or pneumothorax. Mediastinum: Mediastinal contours appear normal. Heart size is normal. Mild prominence of pulmonary vasculature noted. Bones and chest wall: Cervical spinal fusion hardware noted. IMPRESSION: No acute cardiopulmonary disease. Dictated by: Zohaib Rhoades M.D. on 08/23/2018 at 10:42 Approved by: Zohaib Rhoades M.D. on 08/23/2018 at 10:43 ECG Data Attestation: I personally reviewed and interpreted this ECG as follows: Prior ECG tracings: not available for review Interpretation: EKG is a sinus tachycardia with rate [117 ] and free of any signs of ischemia or ectopy. No ST segmental elevation or depression. No T wave inversions Critical Care Time Critical Care Time: Yes Total Critical Care Time: 30 Attestation: The high probability of a clinically significant, sudden or life threatening deterioration of the [cardiovascular] system(s) required my full and direct attention, intervention and personal management. The aggregate critical care time was [30] minutes. 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
[2018-08-23] MEDS: SODIUM CHLORIDE 0.9% 1,000 ML 1000 ML IV ×2 (11:10→12:50)
[2018-08-23] MEDS: THIAMINE 100 MG in DEXTROSE 5 % IN WATER 50 ML 204 ML IV (11:10)
[2018-08-23] MEDS: LORazepam 2 MG/ML SYRINGE IV ×2 (11:10→16:00)
[2018-08-23] MEDS: ONDANSETRON 4 MG/2 ML INJ IV ×3 (11:17→23:06)
--- NOTE | 2018-08-23 11:35 | PC.NURSE ---
pt arrived with label abhilash penny, then pt states, there has been a name change to Abhilash Matias
[2018-08-23 11:41] LABS: INR 0.9 (0.9-1.3); Prothrombin Time 9.8 SECONDS (10.1-12.7)
[2018-08-23 11:42] LABS: Add Manual Diff / Slide Review NO; Basophils Absolute Auto 100 /uL (0-100); Basophils Percent Auto 0.4 % (0-2); Eosinophils Absolute Auto 0 /uL (0-450); Hematocrit 42.2 % (36-46); Hemoglobin 13.8 g/dL (12.0-16.0); Lymphocytes Absolute Auto 800 /uL (1100-4500); Lymphocytes Percent Auto 5.3 % (25-40); Mean Corpuscular HGB Conc 32.6 % (30-36); Mean Corpuscular Hemoglobin 33.5 PG (26-34); Mean Corpuscular Volume 102.7 fL (80-100); Monocytes Absolute Auto 700 /uL (0-900); Monocytes Percent Auto 4.5 % (3-14); Neutrophils Absolute Auto 14100 /uL (1500-7000); Neutrophils Percent Auto 89.8 % (50-75); Platelet Count 230 X10^3/uL (150-400); Red Blood Cell Count 4.11 X10^6/uL (4.0-5.2); Red Cell Distribution Width 13.4 % (11.6-14.8); White Blood Cell Count 15.7 X10^3/uL (4.5-11.0)
[2018-08-23 11:47] LABS: Alanine Aminotransferase 70 IU/L (9-52); Albumin 5.5 g/dL (3.5-5.0); Albumin Globulin Ratio 1.7 (1.0-2.8); Alkaline Phosphatase 73 U/L (38-126); Aspartate Aminotransferase 108 IU/L (14-36); BUN Creatinine Ratio 14.7 (6-22); Bilirubin Total 1.1 mg/dL (0.2-1.3); Bilirubin Unconjugated 0.6 mg/dL (0.0-1.1); Blood Urea Nitrogen 25 mg/dL (7-17); Calcium 8.3 mg/dL (8.4-10.2); Chloride 95 mmol/L (98-107); Estimated Glomerular Filt Rate 33.1 mL/min (>60); Ethanol (ETOH) < 10 mg/dL; Globulin 3.3 g/dL (1.7-4.1); Glucose 276 mg/dL (70-100); HEMOLYSIS 39 (0-50); Lipase 55 U/L (23-300); Magnesium 2.2 mg/dL (1.6-2.3); Sodium 138 mmol/L (137-145); Total Protein 8.8 g/dL (6.3-8.2)
[2018-08-23 11:49] LABS: Potassium 5.7 mmol/L (3.4-5.1)
[2018-08-23 11:58] LABS: Carbon Dioxide 7 mmol/L (22-32)
--- NOTE | 2018-08-23 12:31 | PC.NURSE ---
cooperative with care, incontinent with urine on arrival, no bilateral hands tremors noted, smell of acetone noted. skin cool to touch but dry. arrived with mother.
[2018-08-23 12:34] LABS: PCO2 ABG 14.8 mmHg (35-45); PO2 ABG 127 mmHg (80-100); TCO2 ABG 7 mmol/L (21-31)
[2018-08-23 12:35] LABS: Fractionated Inspired Oxygen 21; HCO3 ABG 6 mmol/L (22-26); Oxygen Saturation ABG 98 % (95-100); pH ABG 7.23 (7.35-7.45)
--- NOTE | 2018-08-23 13:06 | PC.NURSE ---
with minimal assist, voided 200ml dark yellow urine.
[2018-08-23 13:07] LABS: Bacteria Urine None Seen
[2018-08-23 13:14] LABS: Appearance Urine UA CLEAR; Bilirubin Urine UA 1+ (NEGATIVE); Color Urine UA YELLOW; Glucose Urine UA NEGATIVE (Negative); Ketones Urine UA 3+ (NEGATIVE); Leukocyte Esterase Urine UA NEGATIVE (NEGATIVE); Nitrite Urine UA NEGATIVE (Negative); Occult Blood Urine UA 1+ (Negative); Protein Urine UA 1+ (Negative); Specific Gravity Urine UA 1.025 (1.000-1.035); Urobilinogen Urine UA 0.2 E.U./dL (0.2); pH Urine UA 5.5 (4.5-8.0)
[2018-08-23 13:22] LABS: Urine Amphetamines Negative (Negative); Urine Barbiturates Negative (Negative); Urine Cocaine Negative (Negative); Urine MDMA Negative (Negative); Urine Methamphetamines Negative (Negative); Urine Morphine/Opi cutoff 2000 Negative (Negative); Urine Phencyclidine Negative (Negative); Urine Tetrahydrocannabinol Positive (Negative)
[2018-08-23 13:23] LABS: Urine Benzodiazepines Negative (Negative); Urine Methadone Negative (Negative); Urine Oxycodone Negative (Negative); Urine Tricyclic Antidepressant Negative (Negative)
--- NOTE | 2018-08-23 13:24 | PC.NURSE ---
mother reports, Cristal is not , that Deborah Serrato has the the decision making when asked pt doesnt have POA paper. Dr Ballard aware.
[2018-08-23 13:29] LABS: Amorphous Sediment Urine 1+; Ictotest Urine Negative (Negative); RBC Urine 0-1/HPF (0-5/HPF); Squamous Epithelial Cell Urine 0-1 /HPF (0-5/HPF); WBC Urine 0-1/HPF (0-5/HPF)
[2018-08-23 13:30] LABS: Culture Indicated Urine Cult Not Indicated
--- NOTE | 2018-08-23 13:38 | PC.NURSE ---
noted, continue to be infusing iv fluids, site wnl. supportive mother at bs.
--- NOTE | 2018-08-23 13:48 | PM.HP.1 ---
History of Present Illness Date Patient Seen: 08/23/18 Time Patient Seen: 16:41 Chief complaint: trouble breathing,throwing up Narrative: This is a 43-year-old female with a long history of chronic alcohol abuse who presents with 2 days of vomiting along with abdominal pain. She tells me it started last night but her mother, who is present, clarifies that she seems to be missing 1 day since it has been going on for 2 nights. She usually drinks 4-5 mixed drinks per day which her mother explains is usually something mixed with vodka, sometimes vodka and beer together. She has been through rehab once before and went back to drinking immediately. It is unclear if there is a family history of alcoholism as her father is in [place] and they have no contact or knowledge of his health. She also talks about hot flashes which she has had chronically for years and migraines which seem to have both headache, nausea and visual components. Excedrin migraine works the best for her. 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 She has a 19-year-old daughter who would be her next of kin. Her name is Claire Saldana. Her boyfriend's name is Ike Perry. Her lipase is normal. The potassium is 5.7 and the pH is 7.2. She has a chronic nausea and vomiting condition but has not had any alcohol now for 48 hours because of the vomiting and so is in rather florid withdrawal with a high CIWA score. She says there has been no fever, diarrhea, bleeding, seizures, history of pancreatitis, history of vomiting of blood but the below paragraph contradicts some of that historical detail.. Additional records we have obtained from [facility] detail a history of multiple episodes of alcoholic pancreatitis, with pancreatic pseudocyst, with biliary stenting, with hematemesis and alcoholic ketoacidosis. The last admission appears to have been in April of 2018. EGD at that time showed esophagitis which was treated with a PPI drip for 72 hours. Patient History Medical History (Updated 08/23/18 @ 17:38 by Jay Ballard MD) Alcoholic pancreatitis (Acute) Migraine (Acute) ETOH abuse (Acute) Alcoholic ketoacidosis (Acute) Esophagitis (Acute) Pancreatic pseudocyst (Acute) Surgical History (Updated 08/23/18 @ 17:38 by Jay Ballard MD) History of biliary duct stent placement (Acute) Social History household members: spouse Smoking Status: Current every day smoker Family & Social History Safety & Behavioral: Suicidal Ideation Description None Suicide Plan Description No Plan Tobacco & Substance use: alcohol intake frequency 3 or more drinks per day Substance Use Type marijuana Comment: She drinks 4-5 mixed drinks of beer and vodka per day. She has 2 teenage daughters. She has a boyfriend named Ike Perry. Her mother is present in the room, her name is Deborah Serrato. She says she wants to stop drinking and she has been through alcohol dependency treatment once before without success. Meds Home Medications Medication Instructions Recorded Confirmed Type hydroxyzine HCl 1 - 2 tab PO BID PRN 08/23/18 08/23/18 History Allergies Allergy/AdvReac Type Severity Reaction Status Date / Time No Known Drug Allergies Allergy Verified 08/23/18 10:04 Review of Systems Review of Systems Positive for abdominal pain, alcohol withdrawal delirium, headaches, vomiting, nausea, weakness. Negative for fevers, chills, sweats, chest pain, diarrhea, bleeding, rashes, joint pain, seizures, new allergies, difficulty talking. All systems reviewed & are unremarkable except as noted in HPI and below Exam Vital Signs (past 8 hours): - 08/23/18 09:53 08/23/18 10:30 08/23/18 11:11 Temperature 98.4 F Pulse Rate 120 H 115 H 107 H Respiratory Rate 20 18 16 Blood Pressure 138/96 H Blood Pressure [Left Arm] 141/89 H 139/89 Pulse Oximetry 100 100 99 08/23/18 11:33 08/23/18 12:00 08/23/18 12:45 Temperature Pulse Rate 113 H 118 H 112 H Respiratory Rate 26 H 20 25 H Blood Pressure Blood Pressure [Left Arm] 135/64 130/89 124/91 H Pulse Oximetry 100 99 100 08/23/18 13:00 08/23/18 13:30 Temperature Pulse Rate 110 H 110 H Respiratory Rate 22 20 Blood Pressure Blood Pressure [Left Arm] 127/84 116/84 Pulse Oximetry 100 97 Oxygen Delivery Method Room Air Narrative Exam Narrative: Alert and oriented x3 but appears internally distracted and unable to give a logical and accurate history without her mother's assistance. Pupils are equally round and reactive to light and accommodation. Extraocular muscles are intact. Sclerae are pink and nonicteric. No lymph nodes are felt head, neck, supraclavicular area. There is no thyromegaly. No carotid bruits are heard. JVD is less 6 cm. Throat looks normal. Heart is regular rate and rhythm without murmur. Lungs are clear to auscultation bilaterally. Abdomen is soft. Bowel sounds positive. No organomegaly. Diffusely tender across the upper abdomen. There is no ankle edema. There is diffuse significant wasting of the lower extremity musculatures. Cranial nerves 2-12 tested intact. The patient is mildly tremulous. Gait and balance are not tested. Motor function is 4/5 throughout. There is no rash or extensive bruising. Objective Labs Result Diagrams: 08/23/18 11:00 08/23/18 11:00 Labs: Laboratory Results - last 24 hr 08/23/18 08/23/18 08/23/18 11:00 11:00 11:00 WBC 15.7 H RBC 4.11 Hgb 13.8 Hct 42.2 MCV 102.7 H MCH 33.5 MCHC 32.6 RDW 13.4 Plt Count 230 Neut % (Auto) 89.8 H Lymph % (Auto) 5.3 L [place] % (Auto) 4.5 Eos % (Auto) 0.0 L Baso % (Auto) 0.4 Neut # (Auto) 99058 H Lymph # (Auto) 800 L [place] # (Auto) 700 Eos # (Auto) 0 Baso # (Auto) 100 PT 9.8 L INR 0.9 ABG pH ABG pCO2 ABG pO2 ABG HCO3 ABG Total CO2 ABG O2 Saturation ABG Base Excess FiO2 Sodium 138 Potassium 5.7 H Chloride 95 L Carbon Dioxide 7 L* BUN 25 H Creatinine 1.70 H Estimated GFR 33.1 L BUN/Creatinine Ratio 14.7 Glucose 276 H Calcium 8.3 L Magnesium 2.2 Total Bilirubin 1.1 Conjugated Bilirubin 0.0 Unconjugated Bilirubin 0.6 AST 108 H ALT 70 H Alkaline Phosphatase 73 Total Protein 8.8 H Albumin 5.5 H Globulin 3.3 Albumin/Globulin Ratio 1.7 Lipase 55 Urine Color Urine Appearance Urine pH Ur Specific Green[place] Urine Protein Urine Glucose (UA) Urine Ketones Urine Occult Blood Urine Nitrate Urine Bilirubin Urine Ictotest Urine Urobilinogen Ur Leukocyte Esterase Urine RBC Urine WBC Ur Squamous Epith Cells Amorphous Sediment Urine Bacteria Ur Culture Indicated? Urine Opiates Screen Ur Oxycodone Screen Urine Methadone Screen Ur Barbiturates Screen U Tricyclic Antidepress Ur Phencyclidine Scrn Ur Amphetamines Screen U Methamphetamines Scrn Ur MDMA Scrn (Ecstasy) U Benzodiazepines Scrn Urine Cocaine Screen U Marijuana (THC) Screen Ethyl Alcohol < 10 08/23/18 08/23/18 08/23/18 12:20 13:04 13:06 WBC RBC Hgb Hct MCV MCH MCHC RDW Plt Count Neut % (Auto) Lymph % (Auto) [place] % (Auto) Eos % (Auto) Baso % (Auto) Neut # (Auto) Lymph # (Auto) [place] # (Auto) Eos # (Auto) Baso # (Auto) PT INR ABG pH 7.23 L* ABG pCO2 14.8 L* ABG pO2 127 H ABG HCO3 6 L ABG Total CO2 7 L ABG O2 Saturation 98 ABG Base Excess -21.0 L FiO2 21 Sodium Potassium Chloride Carbon Dioxide BUN Creatinine Estimated GFR BUN/Creatinine Ratio Glucose Calcium Magnesium Total Bilirubin Conjugated Bilirubin Unconjugated Bilirubin AST ALT Alkaline Phosphatase Total Protein Albumin Globulin Albumin/Globulin Ratio Lipase Urine Color Yellow Urine Appearance Clear Urine pH 5.5 Ur Specific [place] 1.025 Urine Protein 1+ H Urine Glucose (UA) Negative Urine Ketones 3+ H Urine Occult Blood 1+ H Urine Nitrate Negative Urine Bilirubin 1+ H Urine Ictotest Negative Urine Urobilinogen 0.2 Ur Leukocyte Esterase Negative Urine RBC 0-1/hpf Urine WBC 0-1/hpf Ur Squamous Epith Cells 0-1 /hpf Amorphous Sediment 1+ Urine Bacteria None seen Ur Culture Indicated? Cult not indicated Urine Opiates Screen Negative Ur Oxycodone Screen Negative Urine Methadone Screen Negative Ur Barbiturates Screen Negative U Tricyclic Antidepress Negative Ur Phencyclidine Scrn Negative Ur Amphetamines Screen Negative U Methamphetamines Scrn Negative Ur MDMA Scrn (Ecstasy) Negative U Benzodiazepines Scrn Negative Urine Cocaine Screen Negative U Marijuana (THC) Screen Positive H Ethyl Alcohol Assessment & Plan Assessment & Plan narrative: Alcoholic Ketoacidosis -the potassium is high, as is the magnesium. Those will be rechecked in a couple of hours and then again in the morning. -she will be hydrated with D5 normal saline for now, anticipating to change that based on the results of the upcoming repeat metabolic panel. -a clear liquid diet will be ordered pending improvement in her abdominal pain which is typical for both her chronic pancreatitis, her known history of esophagitis from alcohol use and alcoholic ketoacidosis. Alcohol Withdrawal -the alcohol withdrawal protocol with appropriate benzodiazepines and CIWA monitoring will be initiated. -she has received IV thiamine and the magnesium will be followed closely and supplemented as expected when it drops. Abdominal Pain with history of Chronic Pancreatitis and Alcohol related Esophagitis -IV Protonix will be used. -her EGD done at [facility] in April 2018 showed esophagitis in a very similar presentation. Migraine Headaches -she is requesting migraine Excedrin which is not available on our formulary. I believe that would also include aspirin unfortunately. -this should improve with IV hydration and correction of her alcohol withdrawal symptoms. Nicotine Addiction -offer nicotine patch. Hot Flashes -this has apparently been longstanding, most likely related to her alcohol use and related malnutrition. Acute Kidney Injury -baseline kidney function is unclear. Her current GFR is in the low 30s. -her BMP will be followed and kidney function would be expected to improve with treatment of the alcoholic ketoacidosis. Alcoholic Hepatitis -repeat liver enzymes tomorrow after hydration tonight.
[2018-08-23 14:21] LABS: Hemoglobin A1C% w Est Avg Glu 5.1 % (4.0-6.0)
[2018-08-23] MEDS: DEXTROSE 5%-0.9% NS 1,000 ML 200 ML IV ×2 (14:30→19:57)
[2018-08-23] MEDS: PANTOPRAZOLE 40 MG VIAL IV (14:30)
[2018-08-23] MEDS: CALCIUM CARBONATE 500 MG TAB 1000 MG PO (14:30)
--- NOTE | 2018-08-23 15:28 | PC.ADMIT ---
[address] Admission Note: The patient,Cristal Matias,43 y/o, was given written information regarding hospital policies, unit procedures and contact persons. Patient's smoking status: Current every day smoker. Vital Signs - 8 hr 08/23/18 09:53 08/23/18 10:30 08/23/18 11:11 Temperature 98.4 F Pulse Rate 120 H 115 H 107 H Respiratory Rate 20 18 16 Blood Pressure 138/96 H Blood Pressure [Left Arm] 141/89 H 139/89 Pulse Oximetry 100 100 99 08/23/18 11:33 08/23/18 12:00 08/23/18 12:45 Temperature Pulse Rate 113 H 118 H 112 H Respiratory Rate 26 H 20 25 H Blood Pressure Blood Pressure [Left Arm] 135/64 130/89 124/91 H Pulse Oximetry 100 99 100 08/23/18 13:00 08/23/18 13:30 Temperature Pulse Rate 110 H 110 H Respiratory Rate 22 20 Blood Pressure Blood Pressure [Left Arm] 127/84 116/84 Pulse Oximetry 100 97 Rec'd pt from ED 1420. Pt with nausea, dry heaves. Medicated with PRN zofran and scheduled protonix. Pt reports burning in chest accompanied by belching. Administered PRN tums. Educated pt to fall risk, use of call light, and s/s of ETOH withdrawal. Pt reports generalized pain 9/10 on 0-10 pain scale and requests dilaudid. Provided repositioning and offered warm blanket- educating pt that PRNs may exacerabate n/v and to wait for medications to be effective prior to administration of morphine. She verbalizes understanding and is calm/cooperative with care. Placed call light in easy reach and turned bed alarm on. Pt is wearing a watch and gold-colored ring she wishes to keep on her. She has a wallet, 2 credit cards, $20 bill, bag of coins, broken cell phone, and a silver-colored ring that she would like to send at least part of with and/or mother. Would like some belongings placed in safe. Awaiting clarification from pt. Reported off to love castro RN.
--- NOTE | 2018-08-23 17:19 | PC.NURSE ---
1700- Patient is resting quietly. Patient is forgetful and impulsive easily reorients and cooperative. Can follow simple instruction. Using bedpan with assist. Bed alarm is active. Remains tachycardic at rest, tachypena at rest, room air saturation is 100%. Mom is at bedside. Mom wants to be called first then she will notify her grandaughter if there are care decisions to be made. Patient is stable at this time. Seizure pads are in place.
[2018-08-23] MEDS: INSULIN ASPART 100 UNIT/ML INSULN PEN SUBCUT ×2 (17:41→21:13)
[2018-08-23 19:41] LABS: Blood Urea Nitrogen 24 mg/dL (7-17); Calcium 7.6 mg/dL (8.4-10.2); Carbon Dioxide 18 mmol/L (22-32); Chloride 109 mmol/L (98-107); Estimated Glomerular Filt Rate 49.5 mL/min (>60); Glucose 247 mg/dL (70-100); HEMOLYSIS < 15 (0-50); Potassium 4.5 mmol/L (3.4-5.1); Sodium 139 mmol/L (137-145)
[2018-08-23] MEDS: POTASSIUM PHOSPHATE 15 MMOL in DEXTROSE 5% IN WATER 250 ML 63.75 ML IV (21:14)
--- NOTE | 2018-08-23 22:15 | PC.NURSE ---
2200- Patient is resting quietly in bed wakes with verbal stimulus and or touch. Patient has delayed verbal response with slurred speech. Patient continues to be tachycardic at rest. Patient has a low grade temperature. Patient lungs are clear to auscultation. Patient is voiding using a bedpan. Ciwaa 14 not repeated as patient has been sleeping. Phosphorus is low rider is hanging now. Will monitor.
[2018-08-24] VITALS (10 sets, daily range): BP systolic 108–146; BP diastolic 60–83; PULSE 71–91; RESP 12–22; TEMP 36.9–37.6; O2SAT 96–100
[2018-08-24] MEDS: LORazepam 2 MG/ML SYRINGE IV ×3 (03:48→13:31)
[2018-08-24] MEDS: ONDANSETRON 4 MG ODT PO (03:51)
[2018-08-24] MEDS: DEXTROSE 5%-0.9% NS 1,000 ML 200 ML IV (04:56)
[2018-08-24 05:20] LABS: Add Manual Diff / Slide Review NO; Basophils Absolute Auto 0 /uL (0-100); Basophils Percent Auto 0.2 % (0-2); Eosinophils Absolute Auto 0 /uL (0-450); Eosinophils Percent Auto 0.3 % (2-4); Hematocrit 31.6 % (36-46); Hemoglobin 10.7 g/dL (12.0-16.0); Lymphocytes Absolute Auto 900 /uL (1100-4500); Lymphocytes Percent Auto 10.2 % (25-40); Mean Corpuscular HGB Conc 33.9 % (30-36); Mean Corpuscular Volume 100.3 fL (80-100); Monocytes Absolute Auto 400 /uL (0-900); Neutrophils Absolute Auto 7600 /uL (1500-7000); Neutrophils Percent Auto 84.3 % (50-75); Platelet Count 150 X10^3/uL (150-400); Red Blood Cell Count 3.15 X10^6/uL (4.0-5.2); Red Cell Distribution Width 13.5 % (11.6-14.8)
--- NOTE | 2018-08-24 05:40 | PC.NURSE ---
NOC Note: At start of the shift pt CIWA was 7 and at 0345 CIWA was 10, PRN Ativan givne as ordered. Pt had nausea and emesis at 0345, zofran given. Pt denies ABD pain but reports having a burning pain in her throat and esophagus At 0520, notified [facility] and recieved order for a one time, GI Cocktail. VSS, tele has been NSR. IVF running as ordered. 1PA up to the BSC to void this shift.
[2018-08-24] MEDS: LIDOCAINE VISCOUS 2% 15 ML SOLUTION PO (06:16)
[2018-08-24] MEDS: MAG HYDROX/ALUM/SIMETH 30 ML UDC 20 ML PO (06:16)
[2018-08-24] MEDS: PANTOPRAZOLE 40 MG VIAL IV (08:33)
[2018-08-24] MEDS: ENOXAPARIN 40 MG/0.4 ML SYRINGE SUBCUT (08:33)
[2018-08-24] MEDS: INSULIN ASPART 100 UNIT/ML INSULN PEN SUBCUT (08:34)
[2018-08-24 09:53] LABS: Alanine Aminotransferase 48 IU/L (9-52); Albumin 3.4 g/dL (3.5-5.0); Albumin Globulin Ratio 1.4 (1.0-2.8); Alkaline Phosphatase 48 U/L (38-126); Aspartate Aminotransferase 47 IU/L (14-36); Bilirubin Total 0.4 mg/dL (0.2-1.3); Blood Urea Nitrogen 20 mg/dL (7-17); Calcium 7.6 mg/dL (8.4-10.2); Carbon Dioxide 19 mmol/L (22-32); Chloride 111 mmol/L (98-107); Estimated Glomerular Filt Rate > 60.0 mL/min (>60); Globulin 2.4 g/dL (1.7-4.1); Glucose 218 mg/dL (70-100); HEMOLYSIS < 15 (0-50); Potassium 3.8 mmol/L (3.4-5.1); Sodium 141 mmol/L (137-145); Total Protein 5.8 g/dL (6.3-8.2)
--- NOTE | 2018-08-24 11:23 | CM.DANOTE ---
Addendum entered by TAVO Mcdonough 08/24/18 13:41: ADD: SW called A for an MIS check and pt shows as being enrolled with [facility] for outpt CD tx but pt has not been seen since Mar 2016. No other services in place. BF Original Note: Patient is a 43 year old female who was admitted to ICU on 08/23/18 for Trouble breathing, ETOH. Pt has [facility] and [facility] for insurance and her PCP is Dr. Zakia Salinas. EMR was reviewed. Per MD, pt with a long hx of ETOH and alcoholic pancreatitis and may be agreeable to CD tx and still at least a couple days here for withdrawal and medical management. Per RN, pt's supportive mother and 19 year old dtr to likely be bedside to visit later today and pt appropriate for bedside assessment now and then RN will give pt her medication to manage withdrawal symptoms. SW met bedside with pt and explained role and pt alert and oriented but clearly in discomfort and feeling body pains and nausea. Pt still agreeable to bedside discussion. Per pt, she mostly lives in a tent with her (not legally but life partner) for the past year and they go between [place] and [place] depending on the location of her 's jobs as he is a contractor. Hx Use: Pt states that she has been an alcoholic for many years, since her early adulthood and typically has about 4-5 mixed vodka drinks a day. 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 Hx Tx: Patient states she has attempted CD tx multiple times and found the best tx experience for her was at an [facility] CD tx program in [facility] and she also participated in Intensive Outpt tx in [facility] that she found helpful for a while but then they moved up to [facility] and pt is not currently enrolled in any services. Pt denies any hx of utilizing [facility] in [place] but states it might be a good option for her at d/c. Family: Pt lives in a tent with her life partner and has local Mother and two young adult dtrs in the [facility]. This past year has been stressful for the pt as they are living in a tent [facility] and [facility] and looking for more permanent housing. Plan: Currently, pt states that she has resources for CD tx and services from when she was recently at [facility] for similar medical needs and was not ready for SW to begin the process of attempting Inpt CD tx or even outpt tx for her at this time but would like to discuss further with her family when they arrive. SW also discussed the services provided by [facility] and pt feels this might be an option for her as well but not willing to commit to something at this time. SW to follow with the pt once family arrives to determine d/c planning needs and possible CD tx. TAVO Mcdonough Discharge Planning/Care Management CM Discharge Assessment Start: 08/24/18 11:05 Freq: Status: Active Protocol: Document 08/24/18 11:05 BF (Rec: 08/24/18 11:23 BF [id number]) Discharge Planning Assessment Assigned Bilingual Teacher Aide TAVO Cordero Advance Directives? No History Provided By Patient Medical Record Has Patient been admitted in last 30 No days? Comment Patient resides in a tent with her life partner for the past year, moving between [place] and [place] depending on work jobs. Household Members spouse Type of transporation used prior to Relies on Others admit Independent with ADL's Yes Is patient alert and oriented? Yes Caregiver for Another No Comment Patient currently in ETOH withdrawals and waiting for pt to stabilize to determine possible treatment plan Discharge Plan Drug Rehabilitation Transportation Arrangement Pt has supportive Dtr and mother who could likely provide transport at d/c if pt chooses not to go directly to treatment. Whiteboard Updated in Patient Room with Yes name and ext. # of Bilingual Teacher Aide Review Status In Process Please Provide Date Initial DC 08/24/18 Assessment Was Performed Next Review Type Continued Stay Review
--- NOTE | 2018-08-24 11:30 | P.PN_ITS ---
Subjective Date Patient Seen: 08/24/18 Interval history: Cristal Matias is a 43-year-old female with a long history of chronic alcohol abuse who presents with 2 days of vomiting along with abdominal pain found to be an alcoholic ketosis with acute alcohol withdrawal and admitted for further management. The patient is resting in bed and appears to be acutely withdrawing from alcohol. Patient's last CIWA score was 17. She endorses tremulousness, anxiety, nausea, headache, and formication. She is not actively hallucinating now but was earlier this morning and thought she was talking to her . She denies shortness of breath, chest pain, fever, chills, dysuria, diarrhea or constipation. She is voiding without difficulty. She is up ambulating minimally due to alcohol withdrawal with assistance. Exam Vital Signs (past 8 hours): - 08/24/18 04:00 08/24/18 06:00 08/24/18 06:08 Temperature 98.6 F Pulse Rate 83 91 H 89 Respiratory Rate 20 17 21 Blood Pressure 120/79 111/60 108/67 Pulse Oximetry 99 98 96 08/24/18 08:31 Temperature 98.7 F Pulse Rate 87 Respiratory Rate 19 Blood Pressure 118/83 Pulse Oximetry 100 Oxygen Delivery Method Room Air Narrative Exam Narrative: General: Middle-aged female lying in bed and in no acute distress, appears mildly uncomfortable, well-developed, well-nourished, anxious and tremulous but appropriately interactive. HEENT: Normocephalic, atraumatic. External ears without defect. Pupils equal, round, and reactive to light. Anicteric sclerae, moist conjunctivae, and no lid lag. Neck: Supple with full range of motion. No lymphadenopathy or thyromegaly. Cardiovascular: Regular rhythm and rate without murmurs, rubs, or gallops appreciated. Pulmonary: Clear to auscultation bilaterally without crackles, wheezes, or rhonchi. Normal respiratory effort with no use of accessory muscles. Abdomen: Soft, bowel sounds present, mild epigastric tenderness to palpation, nondistended. No hepatosplenomegaly or masses appreciated. Extremities: No clubbing, cyanosis, or edema. Skin: Normal temperature, turgor, and texture; no rash, ulcers, or subcutaneous nodules appreciated. Neurological: Cranial nerves grossly intact. Psychiatric: Anxious and depressed mood with flat affect. Alert and oriented to person, place, and time. Objective Labs Result Diagrams: 08/24/18 04:50 08/24/18 04:50 Labs: Laboratory Results - last 24 hr 08/23/18 08/23/18 08/23/18 11:00 11:00 11:00 WBC 15.7 H RBC 4.11 Hgb 13.8 Hct 42.2 MCV 102.7 H MCH 33.5 MCHC 32.6 RDW 13.4 Plt Count 230 Neut % (Auto) 89.8 H Lymph % (Auto) 5.3 L [place] % (Auto) 4.5 Eos % (Auto) 0.0 L Baso % (Auto) 0.4 Neut # (Auto) 70158 H Lymph # (Auto) 800 L [place] # (Auto) 700 Eos # (Auto) 0 Baso # (Auto) 100 PT 9.8 L INR 0.9 ABG pH ABG pCO2 ABG pO2 ABG HCO3 ABG Total CO2 ABG O2 Saturation ABG Base Excess FiO2 Sodium 138 Potassium 5.7 H Chloride 95 L Carbon Dioxide 7 L* BUN 25 H Creatinine 1.70 H Estimated GFR 33.1 L BUN/Creatinine Ratio 14.7 Glucose 276 H Hemoglobin A1c Calcium 8.3 L Phosphorus Magnesium 2.2 Total Bilirubin 1.1 Conjugated Bilirubin 0.0 Unconjugated Bilirubin 0.6 AST 108 H ALT 70 H Alkaline Phosphatase 73 Total Protein 8.8 H Albumin 5.5 H Globulin 3.3 Albumin/Globulin Ratio 1.7 Lipase 55 Urine Color Urine Appearance Urine pH Ur Specific [place] Urine Protein Urine Glucose (UA) Urine Ketones Urine Occult Blood Urine Nitrate Urine Bilirubin Urine Ictotest Urine Urobilinogen Ur Leukocyte Esterase Urine RBC Urine WBC Ur Squamous Epith Cells Amorphous Sediment Urine Bacteria Ur Culture Indicated? Urine Opiates Screen Ur Oxycodone Screen Urine Methadone Screen Ur Barbiturates Screen U Tricyclic Antidepress Ur Phencyclidine Scrn Ur Amphetamines Screen U Methamphetamines Scrn Ur MDMA Scrn (Ecstasy) U Benzodiazepines Scrn Urine Cocaine Screen U Marijuana (THC) Screen Ethyl Alcohol < 10 08/23/18 08/23/18 08/23/18 11:00 12:20 13:04 WBC RBC Hgb Hct MCV MCH MCHC RDW Plt Count Neut % (Auto) Lymph % (Auto) [place] % (Auto) Eos % (Auto) Baso % (Auto) Neut # (Auto) Lymph # (Auto) [place] # (Auto) Eos # (Auto) Baso # (Auto) PT INR ABG pH 7.23 L* ABG pCO2 14.8 L* ABG pO2 127 H ABG HCO3 6 L ABG Total CO2 7 L ABG O2 Saturation 98 ABG Base Excess -21.0 L FiO2 21 Sodium Potassium Chloride Carbon Dioxide BUN Creatinine Estimated GFR BUN/Creatinine Ratio Glucose Hemoglobin A1c 5.1 Calcium Phosphorus Magnesium Total Bilirubin Conjugated Bilirubin Unconjugated Bilirubin AST ALT Alkaline Phosphatase Total Protein Albumin Globulin Albumin/Globulin Ratio Lipase Urine Color Urine Appearance Urine pH Ur Specific [place] Urine Protein Urine Glucose (UA) Urine Ketones Urine Occult Blood Urine Nitrate Urine Bilirubin Urine Ictotest Urine Urobilinogen Ur Leukocyte Esterase Urine RBC Urine WBC Ur Squamous Epith Cells Amorphous Sediment Urine Bacteria Ur Culture Indicated? Urine Opiates Screen Negative Ur Oxycodone Screen Negative Urine Methadone Screen Negative Ur Barbiturates Screen Negative U Tricyclic Antidepress Negative Ur Phencyclidine Scrn Negative Ur Amphetamines Screen Negative U Methamphetamines Scrn Negative Ur MDMA Scrn (Ecstasy) Negative U Benzodiazepines Scrn Negative Urine Cocaine Screen Negative U Marijuana (THC) Screen Positive H Ethyl Alcohol 08/23/18 08/23/18 08/23/18 13:06 19:25 19:25 WBC RBC Hgb Hct MCV MCH MCHC RDW Plt Count Neut % (Auto) Lymph % (Auto) [place] % (Auto) Eos % (Auto) Baso % (Auto) Neut # (Auto) Lymph # (Auto) [place] # (Auto) Eos # (Auto) Baso # (Auto) PT INR ABG pH ABG pCO2 ABG pO2 ABG HCO3 ABG Total CO2 ABG O2 Saturation ABG Base Excess FiO2 Sodium 139 Potassium 4.5 D Chloride 109 H Carbon Dioxide 18 L BUN 24 H Creatinine 1.20 H Estimated GFR 49.5 L BUN/Creatinine Ratio 20.0 Glucose 247 H Hemoglobin A1c Calcium 7.6 L Phosphorus 1.0 L* Magnesium 2.0 Total Bilirubin Conjugated Bilirubin Unconjugated Bilirubin AST ALT Alkaline Phosphatase Total Protein Albumin Globulin Albumin/Globulin Ratio Lipase Urine Color Yellow Urine Appearance Clear Urine pH 5.5 Ur Specific [place] 1.025 Urine Protein 1+ H Urine Glucose (UA) Negative Urine Ketones 3+ H Urine Occult Blood 1+ H Urine Nitrate Negative Urine Bilirubin 1+ H Urine Ictotest Negative Urine Urobilinogen 0.2 Ur Leukocyte Esterase Negative Urine RBC 0-1/hpf Urine WBC 0-1/hpf Ur Squamous Epith Cells 0-1 /hpf Amorphous Sediment 1+ Urine Bacteria None seen Ur Culture Indicated? Cult not indicated Urine Opiates Screen Ur Oxycodone Screen Urine Methadone Screen Ur Barbiturates Screen U Tricyclic Antidepress Ur Phencyclidine Scrn Ur Amphetamines Screen U Methamphetamines Scrn Ur MDMA Scrn (Ecstasy) U Benzodiazepines Scrn Urine Cocaine Screen U Marijuana (THC) Screen Ethyl Alcohol 08/24/18 08/24/18 04:50 04:50 WBC 9.0 RBC 3.15 L Hgb 10.7 L Hct 31.6 L MCV 100.3 H MCH 34.0 MCHC 33.9 RDW 13.5 Plt Count 150 Neut % (Auto) 84.3 H Lymph % (Auto) 10.2 L [place] % (Auto) 5.0 Eos % (Auto) 0.3 L Baso % (Auto) 0.2 Neut # (Auto) 7600 H Lymph # (Auto) 900 L [place] # (Auto) 400 Eos # (Auto) 0 Baso # (Auto) 0 PT INR ABG pH ABG pCO2 ABG pO2 ABG HCO3 ABG Total CO2 ABG O2 Saturation ABG Base Excess FiO2 Sodium 141 Potassium 3.8 Chloride 111 H Carbon Dioxide 19 L BUN 20 H Creatinine 1.00 Estimated GFR > 60.0 BUN/Creatinine Ratio 20.0 Glucose 218 H Hemoglobin A1c Calcium 7.6 L Phosphorus Magnesium Total Bilirubin 0.4 Conjugated Bilirubin Unconjugated Bilirubin AST 47 H ALT 48 Alkaline Phosphatase 48 Total Protein 5.8 L Albumin 3.4 L Globulin 2.4 Albumin/Globulin Ratio 1.4 Lipase Urine Color Urine Appearance Urine pH Ur Specific [place] Urine Protein Urine Glucose (UA) Urine Ketones Urine Occult Blood Urine Nitrate Urine Bilirubin Urine Ictotest Urine Urobilinogen Ur Leukocyte Esterase Urine RBC Urine WBC Ur Squamous Epith Cells Amorphous Sediment Urine Bacteria Ur Culture Indicated? Urine Opiates Screen Ur Oxycodone Screen Urine Methadone Screen Ur Barbiturates Screen U Tricyclic Antidepress Ur Phencyclidine Scrn Ur Amphetamines Screen U Methamphetamines Scrn Ur MDMA Scrn (Ecstasy) U Benzodiazepines Scrn Urine Cocaine Screen U Marijuana (THC) Screen Ethyl Alcohol Assessment & Plan Assessment & Plan narrative: Cristal Matias is a 43-year-old female with a long history of chronic alcohol abuse who presents with 2 days of vomiting along with abdominal pain found to be an alcoholic ketosis with acute alcohol withdrawal and admitted for further management. 1. Alcoholic ketoacidosis, present on admission. Resolved. -ABG demonstrated: pH 7.23, pCO2 14.8, PO2 127, bicarb 6 on room air satting 98%. -Initial potassium elevated at 5.7 and now low normal at 3.8. Will continue to monitor and replete as needed. -Continued IV fluid hydration with NS now at 75 mL/hr. -Advancing diet as tolerated pending improvement in her abdominal pain which is typical for both her chronic pancreatitis and esophagitis from alcohol use and alcoholic ketoacidosis. 2. Acute alcohol withdrawal, secondary to alcohol dependence, present on admission. Active. -Alcohol withdrawal protocol in place with appropriate medications and CIWA monitoring. -Continue thiamine and multivitamin. -Continue to monitor electrolytes and replete as needed. -Avoid alcohol indefinitely. Recommending inpatient rehabilitation for alcohol cessation. 3. Acute on chronic abdominal pain with history of chronic pancreatitis and alcohol related esophagitis, present on admission. Stable. -Continue protonix 40 mg IV daily. -Last EGD done at [facility] in April 2018 showed esophagitis and patient presented in a very similar presentation. 4. Acute kidney injury, present on admission. Resolving. -Baseline creatinine unclear. Creatinine on admission 1.2. Trending down now 1.0. -Continue to monitor renal function daily which is expected to improve with treatment of the alcoholic ketoacidosis. 5. Alcoholic hepatitis, likely chronic, present on admission. Resolving. -LFTs elevated and a 2:1 ratio indicative of alcohol induced injury. LFTs trending down and will continue to monitor daily. 6. Migraine headaches, chronic, present on admission. Stable. -She requested Excedrin for migraines which is not available on our formulary and would include aspirin which should not be used in her circumstances -This should improve with IV fluid hydration and correction of her alcohol withdrawal symptoms. 7. Nicotine dependence, chronic, present on admission. Active. -Discussed and recommended smoking cessation in detail. -Ordered nicotine patch as needed for nicotine withdrawal. 8. Hot flashes, chronic, present on admission. Stable. -This has apparently been longstanding and most likely related to her alcohol use and related malnutrition. Disposition: Likely to discharge in several days once through alcohol ketosis and withdrawal. Recommending inpatient rehabilitation. Quality VTE Deep Vein Thrombosis/Pulmonary Embolism Present on Admission: No
[2018-08-24] MEDS: SODIUM CHLORIDE 0.9% 1,000 ML 75 ML IV ×2 (11:45→23:42)
[2018-08-24 12:10] LABS: Magnesium 1.8 mg/dL (1.6-2.3); Phosphorous 1.7 mg/dL (2.5-4.5)
[2018-08-24] MEDS: MULTIVITAMIN 1 TABLET 1 TAB PO (13:06)
[2018-08-24] MEDS: THIAMINE 100 MG TABLET PO (13:06)
[2018-08-24] MEDS: LORazepam 1 MG TABLET PO ×3 (13:07→23:43)
[2018-08-24] MEDS: MORPHINE 2 MG/ML INJ IV ×2 (13:24→18:56)
--- NOTE | 2018-08-24 17:22 | PT.IPTN ---
Current Diagnoses Acidosis (08/23/18) Physical Therapy Treatment Note M3 PT-IP Subjective Start: 08/24/18 17:22 Freq: NEEDED Status: Active Protocol: Document 08/24/18 15:00 (Rec: 08/24/18 17:22 [id number]) Subjective Physical Therapy Visit Type Type Administrative Note Visit Start Time 15:00 Notes Nursing recommends that PT eval tomorrow would be better, therefore attempt PT eval 08/25 . Pt currently only able to use BSC due to weakness.
[2018-08-24] MEDS: ACETAMINOPHEN 325 MG TABLET 650 MG PO (22:00)
[2018-08-24] MEDS: NICOTINE 14 PATCH 14 MG TOP (22:01)
--- NOTE | 2018-08-24 22:38 | PC.NURSE ---
Evening Shift Note: Pt received sleeping in bed, CIWAA 5-6, 1 mg PO lorazepam given. Pt complaining of head-ache, given tylenol. Pt complaining of pain swallowing, given 2 mg IV morphine with good relief. Pt otherwise is oriented and appropriate. Tolerating ice chips and popsicles d/t painful swallowing. BG 116-168. No insulin given this shift. Pt's mother at bedside initially, discussed reasons for pt's initial increased blood glucose. Discussed pt's malnourished status with pt, talked about need to find resources for nutrition. Social work and dietary consults have already been made, discussed this with pt and pt's mother. Pt requested nicotine patch, now in place on R shoulder. Pt otherwise mostly sleeping. Denies nausea. Will continue to monitor, notify MD with changes.
[2018-08-25 04:11] VITALS: BP 135/79; PULSE 60; RESP 19; TEMP 36.9; O2SAT 97
[2018-08-25 04:44] LABS: Add Manual Diff / Slide Review NO; Basophils Absolute Auto 0 /uL (0-100); Basophils Percent Auto 0.7 % (0-2); Eosinophils Absolute Auto 100 /uL (0-450); Eosinophils Percent Auto 2.3 % (2-4); Hematocrit 29.8 % (36-46); Hemoglobin 10.4 g/dL (12.0-16.0); Lymphocytes Absolute Auto 1800 /uL (1100-4500); Mean Corpuscular HGB Conc 34.8 % (30-36); Mean Corpuscular Hemoglobin 34.4 PG (26-34); Mean Corpuscular Volume 98.9 fL (80-100); Monocytes Absolute Auto 200 /uL (0-900); Monocytes Percent Auto 4.1 % (3-14); Neutrophils Absolute Auto 3400 /uL (1500-7000); Neutrophils Percent Auto 60.9 % (50-75); Platelet Count 128 X10^3/uL (150-400); Red Blood Cell Count 3.02 X10^6/uL (4.0-5.2); Red Cell Distribution Width 13.3 % (11.6-14.8); White Blood Cell Count 5.6 X10^3/uL (4.5-11.0)
[2018-08-25 04:52] LABS: Alanine Aminotransferase 44 IU/L (9-52); Albumin 3.1 g/dL (3.5-5.0); Albumin Globulin Ratio 1.3 (1.0-2.8); Alkaline Phosphatase 44 U/L (38-126); Aspartate Aminotransferase 49 IU/L (14-36); BUN Creatinine Ratio 14.3 (6-22); Bilirubin Total 0.5 mg/dL (0.2-1.3); Blood Urea Nitrogen 10 mg/dL (7-17); Calcium 7.9 mg/dL (8.4-10.2); Carbon Dioxide 22 mmol/L (22-32); Chloride 107 mmol/L (98-107); Estimated Glomerular Filt Rate > 60.0 mL/min (>60); Globulin 2.4 g/dL (1.7-4.1); Glucose 104 mg/dL (70-100); HEMOLYSIS < 15 (0-50); Magnesium 1.6 mg/dL (1.6-2.3); Potassium 3.2 mmol/L (3.4-5.1); Sodium 137 mmol/L (137-145); Total Protein 5.5 g/dL (6.3-8.2)
--- NOTE | 2018-08-25 06:48 | PC.NURSE ---
Addendum entered by Margareth Crain R.N. 08/25/18 07:11: Agree with Aubrie Lauren assessments and interventions for patient. Original Note: NOC note Pt with continued C/O of throat pain, ice is helpful. CIWA scores of 7 and 4 this shift. VVS. Pt is weak and requires 1-2PA with transfers for safety. IVF running as ordered. Pt has been sleeping soundly most of the night. Tele has been NSR.
[2018-08-25 07:57] VITALS: BP 127/82; PULSE 65; RESP 19; TEMP 37; O2SAT 99
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
[2018-08-25 08:44] VITALS: PULSE 68; RESP 20; O2SAT 97
[2018-08-25] MEDS: MAGNESIUM SULFATE 2 GM/50 ML PIGGYBACK IV (09:13)
[2018-08-25] MEDS: POTASSIUM CHLORIDE 60 MEQ in SODIUM CHLORIDE 0.9% 500 ML 88.333 ML IV (09:13)
[2018-08-25] MEDS: ENOXAPARIN 40 MG/0.4 ML SYRINGE SUBCUT (09:17)
[2018-08-25] MEDS: PANTOPRAZOLE 40 MG VIAL IV (09:17)
[2018-08-25] MEDS: MULTIVITAMIN 1 TABLET 1 TAB PO (09:18)
[2018-08-25] MEDS: THIAMINE 100 MG TABLET PO (09:18)
[2018-08-25] MEDS: LORazepam 1 MG TABLET PO ×3 (09:25→20:44)
[2018-08-25 11:14] VITALS: BMI 20.2
[2018-08-25 12:00] VITALS: BP 148/99; PULSE 91; RESP 19; TEMP 36.9; O2SAT 100
[2018-08-25] MEDS: INSULIN ASPART 100 UNIT/ML INSULN PEN SUBCUT ×2 (12:48→18:41)
[2018-08-25] MEDS: NICOTINE 14 PATCH 14 MG TOP (12:58)
--- NOTE | 2018-08-25 13:08 | PT.IIE ---
Addendum entered and electronically signed by Daquan Clemons PT 08/25/18 13:53: missed tx frequency Original Note: Current Diagnoses Acidosis (08/23/18) Surgical History (Last Updated 08/23/18 @ 17:38 by Jay Ballard MD) History of biliary duct stent placement (Acute) Medical History (Last Updated 08/23/18 @ 17:38 by Jay Ballard MD) Alcoholic pancreatitis (Acute) Migraine (Acute) ETOH abuse (Acute) Alcoholic ketoacidosis (Acute) Esophagitis (Acute) Pancreatic pseudocyst (Acute) Physical Therapy Inpatient Evaluation/Re-Eval M1 PT/OT-IP Prior Functional Status Start: 08/24/18 17:22 Freq: NEEDED Status: Active Protocol: Document 08/25/18 11:30 HH (Rec: 08/25/18 13:08 [email or web address]) Medical Review Prior Functional Status Medical History Reviewed Yes Diet/Fluid Consistency Regular Communication No deficits noted. Able to make needs known. Mobility and Gait Pt was an independent ambulator at home and community without AD Activities of Daily Living and IADL's Pt was indepedent for ADLs and IADLs without using AD Prior Functional Level (Other details) Unable to lift >50lbs due to cervical fusion sx in Social History Household Members spouse Employment Status Unemployed Additional Social History Comment Per pt, she mostly lives in a tent with her (not legally but life partner) for the past year and they go between [place] and [place] (currently in [place]) depending on the location of her 's jobs as he is a contractor. Pt states that she has been an alcoholic for many years, since her early adulthood and typically has about 4-5 mixed vodka drinks a day. pt's supportive mother and 19 year old dtr both live in [facility] . Pt is planning to move to her mother's home if possible who lives in a 1level apt with no CYNDIE. M2 PT-IP Current Condition Start: 08/24/18 17:22 Freq: NEEDED Status: Active Protocol: Document 08/25/18 11:30 HH (Rec: 08/25/18 13:08 [email or web address]) Physical Therapy Current Condition Current Condition Evaluation Date 08/25/18 Treatment Diagnosis alcoholic ketosis with acute alcohol withdrawal, impaired gait and act evans Onset Date 08/23/18 Weight Bearing Status Weight Bearing Status Weight Bear as Tolerated M3 PT-IP Subjective Start: 08/24/18 17:22 Freq: NEEDED Status: Active Protocol: Document 08/25/18 11:30 HH (Rec: 08/25/18 13:08 [email or web address]) Subjective Physical Therapy Visit Type Type Initial Evaluation Visit Start Time 11:30 Visit Stop Time 11:50 Total Visit Minutes 20 Notes Per RN, pt has been getting OOB for transfers only due to weakness and withdrawal symptoms. Number of CAMPUS COORDINATOR Visits 0 Physical Therapy Visit Comments Patient Comments My body is always shaky and feel cold and hold at the same time. Patient Goals To be d/c to her mother's home with her once she is medically stable. Therapy Pain Assessment Pain Present Pain Present Denied Pain M4 PT-IP Mobility and Gait Start: 08/24/18 17:22 Freq: NEEDED Status: Active Protocol: Document 08/25/18 11:30 HH (Rec: 08/25/18 13:08 [email or web address]) PT-Bed Mobility Assessment Rolling Type of Rolling Roll to Left Level of Assist Independent Supine to Sit Supine to Sit Independent Scooting Scooting to Edge of Bed Independent PT-Transfer Assessment Sit to and From Stand Sit to and from Stand Contact Guard Assistance Use of Upper Extremities Equipment Transfer Assistive Device Gait Belt Orthotic/Prosthetic Devices or Brace: No Transfers Transfer Destination Bed Chair Transfer Technique Stand Step Pivot Transfer Ability Level of Assist Contact Guard Assistance Use of Upper Extremities Comments Mobility Comments Pt was up in bed upon assessment, able to get OOB independently but with CGA for transfers slowly. Pt appears very shaky from time to time and c/o cold and hot at the same time. Per RN, pt was experiencing acute alcohol withdrawal the past two days and appeared very weak in terms of mobility. Gait Assessment Gait Gait Assistance Required: Contact Guard Assist Distance (Feet) 80 Able to Maintain Weight Bearing Status Yes During Gait Assistive Devices Assistive Device Gait Belt Orthotic/Prosthetic Devices or Brace: No Gait Deviations General Gait Pattern Ataxic Decreased Stride Length Decreased Feet Clearance Factors Limiting Gait Function Factors Limiting Gait Function Decreased Activity Tolerance Decreased Strength Poor Balance Poor Safety Awareness Respiratory Distress Comments Gait Comments Pt amb from EOB to hallway and returned to chair. Pt presents slight ataxic gait with inconsistent stride length and feet clearance. Pt' s feet crossed midline multiple times and required CGA for guidance. Pt stated Im very wobbly today but my balance is not too great before hospitalization. Pt did improve as amb distance increases. PT-Balance Assessment Sitting Balance and Reactions Static Sitting Balance Ability Normal Dynamic Sitting Balance Ability Normal Standing Balance and Reactions Static Standing Balance Ability Good Dynamic Standing Balance Ability Fair Balance Tests Single Limb Standing 5s Romberg 11s M5 PT-IP Objective Assessments Start: 08/24/18 17:22 Freq: NEEDED Status: Active Protocol: Document 08/25/18 11:30 (Rec: 08/25/18 13:08 [email or web address]) Orientation Orientation/Cognition Level of Alertness Alert Orientation Name Age Birthday Month Date Year Day of Week Place Situation Language Function Ability No Deficits Noted Safety Awareness Understands Safety Issues Memory Description No Deficits Noted Gross Range of Motion Upper Extremity ROM Assessment Within Functional Limits Lower Extremity ROM Assessment Within Functional Limits Strength Upper Extremity Strength Assessment Within Functional Limits Lower Extremity Strength Assessment Within Functional Limits Coordination Assessment Gross Coordination Gross Coordination WNL Sensation Assessment Sensation Gross Sensation WNL Muscle Tone Muscle Tone WNL Yes M6 PT-IP Treatment Start: 08/24/18 17:22 Freq: NEEDED Status: Active Protocol: Document 08/25/18 11:30 HH (Rec: 08/25/18 13:08 [email or web address]) Physical Therapy Treatment Education Education Provided Safety M7 PT-IP Assessment and Plan Start: 08/24/18 17:22 Freq: NEEDED Status: Active Protocol: Document 08/25/18 11:30 HH (Rec: 08/25/18 13:08 [email or web address]) PT Summary Assessment and Plan Potential Rehabilitation Potential Good Status of Condition at Evaluation Stable Summary Impairments Strength Balance Bed Mobility Transfers Gait Activity Tolerance Assessment Summary Pt is a 43yo female admitted to ICU due to alcoholic ketosis with acute alcohol withdrawal. Upon assessment, pt presents noticeable tremors and weakness, along with decreased activity strength, activity tolerance and balance . Pt shows mild ataxic gait with inconsistent stride length and crossed midline multiple times during gait assessment. But her gait improved as amb distance increases. single leg balance and romberg are 5s and 11s only. Pt at this point is still far from her baseline in terms of her strength and mobility and not safe to be d/ c to back to community. Cont assessment will be needed due to her withdrawal symtoms. In addition, pt and her are trying to find out if they could move in with her mother in [facility]. Pt will benefit from skilled therapy to cont improve pt's mobility during hospitalization. Goals Bed Mobility Goal Independent Transfer Goal Independent Gait Goal Independent Gait Distance 300 Days to Meet Goals 5 Treatment Plan Physical Therapy Treatment Plan Bed Mobility Training Transfer Training Gait Training Therapeutic Exercise Balance Retraining Discharge Planning Other Recommendations and Next Treatment transfer/ gait training as evans Focus LRAD Recommendations To Nursing Amount of Assist Needed Standby Assistance 1 Person Assist Discharge Recommendations PT Discharge Recommendations Home Other Discharge Recommendations Pt at this point is still far from her baseline in terms of her strength and mobility and not safe to be d/c to back to community. Cont assessment will be needed due to her withdrawal symtoms. In addition, pt and her are trying to find out if they could move in with her mother in [facility]. Pt will benefit from skilled therapy to cont improve pt's mobility during hospitalization.
--- NOTE | 2018-08-25 13:53 | PT.IIE ---
Current Diagnoses Acidosis (08/23/18) Surgical History (Last Updated 08/23/18 @ 17:38 by Jay Ballard MD) History of biliary duct stent placement (Acute) Medical History (Last Updated 08/23/18 @ 17:38 by Jay Ballard MD) Alcoholic pancreatitis (Acute) Migraine (Acute) ETOH abuse (Acute) Alcoholic ketoacidosis (Acute) Esophagitis (Acute) Pancreatic pseudocyst (Acute) Physical Therapy Inpatient Evaluation/Re-Eval M1 PT/OT-IP Prior Functional Status Start: 08/24/18 17:22 Freq: NEEDED Status: Active Protocol: Document 08/25/18 11:30 HH (Rec: 08/25/18 13:08 [email or web address]) Medical Review Prior Functional Status Medical History Reviewed Yes Diet/Fluid Consistency Regular Communication No deficits noted. Able to make needs known. Mobility and Gait Pt was an independent ambulator at home and community without AD Activities of Daily Living and IADL's Pt was indepedent for ADLs and IADLs without using AD Prior Functional Level (Other details) Unable to lift >50lbs due to cervical fusion sx in Social History Household Members spouse Employment Status Unemployed Additional Social History Comment Per pt, she mostly lives in a tent with her (not legally but life partner) for the past year and they go between [place] and [place] (currently in [place]) depending on the location of her 's jobs as he is a contractor. Pt states that she has been an alcoholic for many years, since her early adulthood and typically has about 4-5 mixed vodka drinks a day. pt's supportive mother and 19 year old dtr both live in [facility] . Pt is planning to move to her mother's home if possible who lives in a 1level apt with no CYNDIE. M2 PT-IP Current Condition Start: 08/24/18 17:22 Freq: NEEDED Status: Active Protocol: Document 08/25/18 11:30 HH (Rec: 08/25/18 13:08 [email or web address]) Physical Therapy Current Condition Current Condition Evaluation Date 08/25/18 Treatment Diagnosis alcoholic ketosis with acute alcohol withdrawal, impaired gait and act evans Onset Date 08/23/18 Weight Bearing Status Weight Bearing Status Weight Bear as Tolerated M3 PT-IP Subjective Start: 08/24/18 17:22 Freq: NEEDED Status: Active Protocol: Document 08/25/18 11:30 HH (Rec: 08/25/18 13:08 [email or web address]) Subjective Physical Therapy Visit Type Type Initial Evaluation Visit Start Time 11:30 Visit Stop Time 11:50 Total Visit Minutes 20 Notes Per RN, pt has been getting OOB for transfers only due to weakness and withdrawal symptoms. Number of CAN FEEDER Visits 0 Physical Therapy Visit Comments Patient Comments My body is always shaky and feel cold and hold at the same time. Patient Goals To be d/c to her mother's home with her once she is medically stable. Therapy Pain Assessment Pain Present Pain Present Denied Pain M4 PT-IP Mobility and Gait Start: 08/24/18 17:22 Freq: NEEDED Status: Active Protocol: Document 08/25/18 11:30 HH (Rec: 08/25/18 13:08 [email or web address]) PT-Bed Mobility Assessment Rolling Type of Rolling Roll to Left Level of Assist Independent Supine to Sit Supine to Sit Independent Scooting Scooting to Edge of Bed Independent PT-Transfer Assessment Sit to and From Stand Sit to and from Stand Contact Guard Assistance Use of Upper Extremities Equipment Transfer Assistive Device Gait Belt Orthotic/Prosthetic Devices or Brace: No Transfers Transfer Destination Bed Chair Transfer Technique Stand Step Pivot Transfer Ability Level of Assist Contact Guard Assistance Use of Upper Extremities Comments Mobility Comments Pt was up in bed upon assessment, able to get OOB independently but with CGA for transfers slowly. Pt appears very shaky from time to time and c/o cold and hot at the same time. Per RN, pt was experiencing acute alcohol withdrawal the past two days and appeared very weak in terms of mobility. Gait Assessment Gait Gait Assistance Required: Contact Guard Assist Distance (Feet) 80 Able to Maintain Weight Bearing Status Yes During Gait Assistive Devices Assistive Device Gait Belt Orthotic/Prosthetic Devices or Brace: No Gait Deviations General Gait Pattern Ataxic Decreased Stride Length Decreased Feet Clearance Factors Limiting Gait Function Factors Limiting Gait Function Decreased Activity Tolerance Decreased Strength Poor Balance Poor Safety Awareness Respiratory Distress Comments Gait Comments Pt amb from EOB to hallway and returned to chair. Pt presents slight ataxic gait with inconsistent stride length and feet clearance. Pt' s feet crossed midline multiple times and required CGA for guidance. Pt stated Im very wobbly today but my balance is not too great before hospitalization. Pt did improve as amb distance increases. PT-Balance Assessment Sitting Balance and Reactions Static Sitting Balance Ability Normal Dynamic Sitting Balance Ability Normal Standing Balance and Reactions Static Standing Balance Ability Good Dynamic Standing Balance Ability Fair Balance Tests Single Limb Standing 5s Romberg 11s M5 PT-IP Objective Assessments Start: 08/24/18 17:22 Freq: NEEDED Status: Active Protocol: Document 08/25/18 11:30 HH (Rec: 08/25/18 13:08 [email or web address]) Orientation Orientation/Cognition Level of Alertness Alert Orientation Name Age Birthday Month Date Year Day of Week Place Situation Language Function Ability No Deficits Noted Safety Awareness Understands Safety Issues Memory Description No Deficits Noted Gross Range of Motion Upper Extremity ROM Assessment Within Functional Limits Lower Extremity ROM Assessment Within Functional Limits Strength Upper Extremity Strength Assessment Within Functional Limits Lower Extremity Strength Assessment Within Functional Limits Coordination Assessment Gross Coordination Gross Coordination WNL Sensation Assessment Sensation Gross Sensation WNL Muscle Tone Muscle Tone WNL Yes M6 PT-IP Treatment Start: 08/24/18 17:22 Freq: NEEDED Status: Active Protocol: Document 08/25/18 11:30 HH (Rec: 08/25/18 13:08 [email or web address]) Physical Therapy Treatment Education Education Provided Safety M7 PT-IP Assessment and Plan Start: 08/24/18 17:22 Freq: NEEDED Status: Active Protocol: Document 08/25/18 11:30 HH (Rec: 08/25/18 13:08 [email or web address]) PT Summary Assessment and Plan Potential Rehabilitation Potential Good Status of Condition at Evaluation Stable Summary Impairments Strength Balance Bed Mobility Transfers Gait Activity Tolerance Assessment Summary Pt is a 43yo female admitted to ICU due to alcoholic ketosis with acute alcohol withdrawal. Upon assessment, pt presents noticeable tremors and weakness, along with decreased activity strength, activity tolerance and balance . Pt shows mild ataxic gait with inconsistent stride length and crossed midline multiple times during gait assessment. But her gait improved as amb distance increases. single leg balance and romberg are 5s and 11s only. Pt at this point is still far from her baseline in terms of her strength and mobility and not safe to be d/ c to back to community. Cont assessment will be needed due to her withdrawal symtoms. In addition, pt and her are trying to find out if they could move in with her mother in [facility]. Pt will benefit from skilled therapy to cont improve pt's mobility during hospitalization. Goals Bed Mobility Goal Independent Transfer Goal Independent Gait Goal Independent Gait Distance 300 Days to Meet Goals 5 Frequency of Treatment Frequency Of Treatment Once a Day Treatment Plan Physical Therapy Treatment Plan Bed Mobility Training Transfer Training Gait Training Therapeutic Exercise Balance Retraining Discharge Planning Other Recommendations and Next Treatment transfer/ gait training as evans Focus LRAD Recommendations To Nursing Amount of Assist Needed Standby Assistance 1 Person Assist Discharge Recommendations PT Discharge Recommendations Home Other Discharge Recommendations Pt at this point is still far from her baseline in terms of her strength and mobility and not safe to be d/c to back to community. Cont assessment will be needed due to her withdrawal symtoms. In addition, pt and her are trying to find out if they could move in with her mother in [facility]. Pt will benefit from skilled therapy to cont improve pt's mobility during hospitalization.
--- NOTE | 2018-08-25 15:32 | CM.DPNOTE ---
DCP/continued: Reviewed chart. Spoke with Dr. Jaimes regarding d/c plan. Patient actively detoxing from alcohol. Last CIWA score is 8 patient continues to require IV medications. PLC TECHNICIAN met with patient and spouse/Ike at bedside explained SW role. Patient's spouse exited room at time of visit. Patient reports long h/o alcohol abuse. Patient denies wanting to go anywhere inpatient for assistance. Patient reports that she plans to go to her Mother's house and be cared for. Patient denies any current suicidal thoughts. PLC TECHNICIAN spoke with Dr. Jaimes and medically it is in patient's best interest to remain hospitalized until CIWA score trends further down. Dr. Jaimes plans to discuss with patient. If patient in agreement she will remain hospitalized if not she will have to leave AMA. Community resources provided for [facility]. P: Home when stable vs. AMA if refuses to stay. TAVO Henderson
[2018-08-25 16:00] VITALS: BP 151/95; PULSE 95; RESP 20; TEMP 37.3; O2SAT 100
[2018-08-25] MEDS: SODIUM CHLORIDE 0.9% 1,000 ML 75 ML IV (16:01)
[2018-08-25 20:00] VITALS: BP 128/77; PULSE 91; RESP 14; TEMP 36.4; O2SAT 99
[2018-08-25] MEDS: ACETAMINOPHEN 325 MG TABLET 650 MG PO (20:41)
[2018-08-26 00:13] VITALS: BP 136/71; PULSE 84; RESP 12; TEMP 36.8; O2SAT 100
[2018-08-26] MEDS: LORazepam 1 MG TABLET PO (00:25)
[2018-08-26 04:00] VITALS: BP 148/91; PULSE 77; RESP 15; TEMP 36.8; O2SAT 95
[2018-08-26] MEDS: ACETAMINOPHEN 325 MG TABLET 650 MG PO (04:30)
[2018-08-26 05:32] LABS: Alanine Aminotransferase 59 IU/L (9-52); Albumin 3.4 g/dL (3.5-5.0); Albumin Globulin Ratio 1.4 (1.0-2.8); Alkaline Phosphatase 47 U/L (38-126); Aspartate Aminotransferase 95 IU/L (14-36); BUN Creatinine Ratio 12.9 (6-22); Bilirubin Total 0.8 mg/dL (0.2-1.3); Blood Urea Nitrogen 9 mg/dL (7-17); Calcium 8.3 mg/dL (8.4-10.2); Carbon Dioxide 27 mmol/L (22-32); Chloride 105 mmol/L (98-107); Estimated Glomerular Filt Rate > 60.0 mL/min (>60); Globulin 2.4 g/dL (1.7-4.1); Glucose 125 mg/dL (70-100); HEMOLYSIS < 15 (0-50); Magnesium 1.9 mg/dL (1.6-2.3); Potassium 3.7 mmol/L (3.4-5.1); Sodium 138 mmol/L (137-145); Total Protein 5.8 g/dL (6.3-8.2)
[2018-08-26] MEDS: SODIUM CHLORIDE 0.9% 1,000 ML 75 ML IV (05:35)
[2018-08-26] MEDS: PANTOPRAZOLE 40 MG TABLET PO (06:32)
[2018-08-26 07:47] VITALS: BP 137/86; PULSE 71; RESP 12; TEMP 37; O2SAT 100
--- NOTE | 2018-08-26 08:21 | P.DS_ITS ---
History of Present Illness Date Patient Seen: 08/26/18 Chief complaint: trouble breathing,throwing up Narrative: This is a 43-year-old female with a long history of chronic alcohol abuse who presents with 2 days of vomiting along with abdominal pain. She tells me it started last night but her mother, who is present, clarifies that she seems to be missing 1 day since it has been going on for 2 nights. She usually drinks 4-5 mixed drinks per day which her mother explains is usually something mixed with vodka, sometimes vodka and beer together. She has been through rehab once before and went back to drinking immediately. It is unclear if there is a family history of alcoholism as her father is in [place] and they have no contact or knowledge of his health. She also talks about hot flashes which she has had chronically for years and migraines which seem to have both headache, nausea and visual components. Excedrin migraine works the best for her. 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 She has a 19-year-old daughter who would be her next of kin. Her name is Claire Saldana. Her boyfriend's name is Ike Perry. Her lipase is normal. The potassium is 5.7 and the pH is 7.2. She has a chronic nausea and vomiting condition but has not had any alcohol now for 48 hours because of the vomiting and so is in rather florid withdrawal with a high CIWA score. She says there has been no fever, diarrhea, bleeding, seizures, history of pancreatitis, history of vomiting of blood but the below paragraph contradicts some of that historical detail.. Additional records we have obtained from [facility] detail a history of multiple episodes of alcoholic pancreatitis, with pancreatic pseudocyst, with biliary stenting, with hematemesis and alcoholic ketoacidosis. The last admission appears to have been in April of 2018. EGD at that time showed esophagitis which was treated with a PPI drip for 72 hours. The patient's blood pressure was labile and at times elevated. She was asked to follow up with her PCP for evaluation of hypertension as an outpatient. Discharge Providers Date of admission: 08/23/18 13:21 Discharge Date: 08/26/18 Primary care physician: HENNY Rogers Consults: 08/23/18 13:40 Consult to Dietitian, Adult Routine Comment: Reason For Exam: Malnutrition 08/23/18 13:41 Consult to Physical Therapy Evaluate & Treat Comment: Physician Instructions: Evaluate and Treat 08/23/18 15:13 Consult to Dietitian, Adult Routine Comment: Reason For Exam: at risk Consult to Financial Administration Officer Routine Comment: Discharge provider: Sofia Cleveland MD Summary Discharge Diagnosis: Acute Alcohol Withdrawal, present on admission Alcoholic Ketoacidosis, present on admission Delerium tremens, resolved, present on admission Acute on chronic abdominal pain, resolved, present on admission Acute Kidney Injury, present on admission, resolved Alcoholic Hepatitis, present on admission Migraine Headaches, chronic Nicotine dependence, present on admission Chronic nausea, present on admission Hospital Course: Patient was admitted to the hospital for acute alcohol withdrawal, alcoholic ketoacidosis, and acute kidney injury. She was placed on the alcohol withdrawal protocol. She had continued symptoms of withdrawal for at least 2 days. She continued to have chronic daily headache as well. Her appetite did improve. She had no further hallucinations, tremors, or confusion. The patient was evaluated by social work and given resources for outpatient treatment after discharge. The patient does have a PCP and will follow up at [facility]. She will be going to her mother's house after discharge. She also has not had an eye exam for several years and will follow up with optmetry as this may be triggering her headaches. Patient was deemed appropriate for discharge home. Status at Discharge Cognitive/behavioral status at discharge: oriented Functional status at discharge: independent ambulation Overall status at discharge: patient is back to baseline Time Spent with Patient Less than 30 minutes Exam Vital Signs (past 8 hours): - 08/26/18 04:00 08/26/18 07:47 Temperature 98.3 F 98.6 F Pulse Rate 77 71 Respiratory Rate 15 12 Blood Pressure 148/91 H 137/86 Pulse Oximetry 95 100 Oxygen Delivery Method Room Air Oxygen Flow Rate 0 Narrative Exam Narrative: pleasant female resting comfortably in no acute distress Lungs: Clear to auscultation CV: RRR nl Sl S2 2/6 ARA Abd: soft/ mild right upper quadrant tenderness, no rebound, no boardlike rigidity Ext: no edema Objective Labs Result Diagrams: 08/25/18 04:21 08/26/18 04:11 Labs: Laboratory Results - last 24 hr 08/26/18 04:11 Sodium 138 Potassium 3.7 Chloride 105 Carbon Dioxide 27 BUN 9 Creatinine 0.70 Estimated GFR > 60.0 BUN/Creatinine Ratio 12.9 Glucose 125 H Calcium 8.3 L Magnesium 1.9 Total Bilirubin 0.8 AST 95 H ALT 59 H Alkaline Phosphatase 47 Total Protein 5.8 L Albumin 3.4 L Globulin 2.4 Albumin/Globulin Ratio 1.4 Discharge Plan Discharge Plan Discharge Problem: Alcohol withdrawal syndrome, Alcohol withdrawal delirium, Alcoholic ketoacidosis, Acute kidney injury Patient Disposition: Home Discharge Med Rec/Prescriptions Prescriptions: New ondansetron 4 mg Tablet,Disintegrating 4 mg PO Q8HR PRN (Reason: Nausea And Vomiting) 30 Days RF: 0 pantoprazole 40 mg Tablet,Delayed Release (Dr/Ec) 40 mg PO 0700 30 Days Qty: 30 RF: 0 Continued hydroxyzine HCl 25 mg tablet 1 - 2 tab PO BID PRN (Reason: Anxiety) RF: 0 Provider Discharge Instructions Diet: Diet as Tolerated and Regular Activity: as tolerated Discharge Data Primary Care Provider: Zakia Salinas Attending Provider: Jay Ballard Admit Date/Time: 08/23/18 13:21 Quality VTE Deep Vein Thrombosis/Pulmonary Embolism Present on Admission: No
--- NOTE | 2018-08-26 10:28 | PC.NURSE ---
discharged from hospital at this time am ciwa score 6, a/o and independent with adl's=- took long shower prior to discharge and her and significant other declines hospital escort to door
== END 2018-08-26 10:30 | disposition home or self-care (01) | DRG 460 ==
LOC: ED 10:55 → AC 13:21 → ICU 15:31
PROVIDERS: Internal Medicine; Admitting Provider Family Medicine; Emergency Provider Emergency Medicine; PCP Nurse Practitioner Gerontology; Visit Provider Family Medicine
DX: N17.9 Acute kidney failure, unspecified (principal); E87.2 Acidosis; K70.10 Alcoholic hepatitis without ascites; F10.231 Alcohol dependence with withdrawal delirium; G43.909 Migraine, unspecified, not intractable, without status migrainosus; F17.200 Nicotine dependence, unspecified, uncomplicated; E46 Unspecified protein-calorie malnutrition; Z68.1 Body mass index [BMI] 19.9 or less, adult; R10.9 Unspecified abdominal pain; R11.0 Nausea
CPT/HCPCS: 36415; 36591; 36600; 71045; 80048; 80053; 80076; 80305; 80320; 81001; 82805; 82962; 83036; 83690; 83735; 84100; 85025; 85610; 93005; 93010; 96361; 96365; 96375; 97161; 99285; 99406; C9113; J1650; J2060; J2270; J2405; J3480

== ENCOUNTER 2018-11-18 17:19 | Emergency (ER) | payer OTHER, MEDICAID, SELFPAY ==
[2018-08-23 14:25] VITALS: BMI 18.9
[2018-11-18 17:22] VITALS: BP 170/104; PULSE 130; RESP 18; TEMP 37.2; O2SAT 96
[2018-11-18] MEDS: SODIUM CHLORIDE 0.9% 1,000 ML 1000 ML IV (17:40)
[2018-11-18] MEDS: LORazepam 2 MG/ML INJ IV (17:40)
[2018-11-18] MEDS: ONDANSETRON 4 MG/2 ML INJ IV (17:44)
[2018-11-18 17:47] LABS: Add Manual Diff / Slide Review NO; Basophils Absolute Auto 100 /uL (0-100); Basophils Percent Auto 1.5 % (0-2); Eosinophils Absolute Auto 200 /uL (0-450); Eosinophils Percent Auto 2.8 % (2-4); Hematocrit 35.2 % (36-46); Lymphocytes Absolute Auto 1700 /uL (1100-4500); Lymphocytes Percent Auto 23.2 % (25-40); Mean Corpuscular HGB Conc 34.2 % (30-36); Mean Corpuscular Hemoglobin 34.4 PG (26-34); Mean Corpuscular Volume 100.7 fL (80-100); Monocytes Absolute Auto 600 /uL (0-900); Monocytes Percent Auto 8.1 % (3-14); Neutrophils Absolute Auto 4700 /uL (1500-7000); Neutrophils Percent Auto 64.4 % (50-75); Platelet Count 415 X10^3/uL (150-400); Red Cell Distribution Width 14.1 % (11.6-14.8); White Blood Cell Count 7.3 X10^3/uL (4.5-11.0)
[2018-11-18 18:10] LABS: Lipase 28 U/L (23-300)
[2018-11-18 18:12] LABS: Acetaminophen < 10 ug/mL (10-30); Alanine Aminotransferase 63 IU/L (9-52); Albumin 4.8 g/dL (3.5-5.0); Albumin Globulin Ratio 1.5 (1.0-2.8); Alkaline Phosphatase 78 U/L (38-126); Aspartate Aminotransferase 74 IU/L (14-36); Bilirubin Total 0.5 mg/dL (0.2-1.3); Blood Urea Nitrogen 12 mg/dL (7-17); Calcium 8.9 mg/dL (8.4-10.2); Carbon Dioxide 22 mmol/L (22-32); Chloride 100 mmol/L (98-107); Estimated Glomerular Filt Rate > 60.0 mL/min (>60); Ethanol (ETOH) 274 mg/dL; Globulin 3.1 g/dL (1.7-4.1); Glucose 95 mg/dL (70-100); HEMOLYSIS < 15 (0-50); Potassium 3.4 mmol/L (3.4-5.1); Salicylate < 1.0 mg/dL (<20); Sodium 143 mmol/L (137-145); Total Protein 7.9 g/dL (6.3-8.2)
[2018-11-18 18:18] VITALS: BP 138/88; PULSE 96; RESP 16; O2SAT 100
[2018-11-18 18:34] LABS: Free T4, Direct Thyroxine 1.07 ng/dL (0.78-2.19)
[2018-11-18 18:48] LABS: Thyroid Stimulating Hormone 2.18 uIU/mL (0.47-4.68)
[2018-11-18 19:26] VITALS: BP 128/82; PULSE 107; RESP 18; TEMP 36.7; O2SAT 100
[2018-11-18] MEDS: NICOTINE 21 MG PATCH TOP (19:26)
[2018-11-18 20:10] LABS: RBC Urine None Seen (0-5/HPF)
[2018-11-18 20:16] LABS: Urine Amphetamines Positive (Negative); Urine Barbiturates Negative (Negative); Urine Benzodiazepines Negative (Negative); Urine Cocaine Negative (Negative); Urine MDMA Negative (Negative); Urine Methadone Negative (Negative); Urine Methamphetamines Positive (Negative); Urine Morphine/Opi cutoff 2000 Negative (Negative); Urine Oxycodone Negative (Negative); Urine Phencyclidine Negative (Negative); Urine Tetrahydrocannabinol Positive (Negative); Urine Tricyclic Antidepressant Negative (Negative)
[2018-11-18 20:20] LABS: Bacteria Urine Many (>30); Culture Indicated Urine Specimen Cultured; WBC Urine 5-10/HPF (0-5/HPF)
[2018-11-18 20:36] VITALS: BP 105/77; PULSE 99; RESP 16; O2SAT 98
[2018-11-18] MEDS: LORazepam 2 MG/ML INJ 1 MG IM (21:14)
[2018-11-18] MEDS: LORazepam 0.5 MG TABLET 2 MG PO (21:16)
[2018-11-18] MEDS: ONDANSETRON 4 MG ODT PREPACK 1 BOTTLE MISC (21:17)
[2018-11-18 21:40] VITALS: BP 138/85; PULSE 94; RESP 16; TEMP 36.9; O2SAT 98
--- NOTE | 2018-11-19 05:40 | ED_ITS ---
HPI - Medical Clearance General Chief complaint: Medical Clearance Stated complaint: WANTS DETOX Time Seen by Provider: 11/18/18 19:03 Source: patient and family Mode of arrival: ambulatory Limitations: no limitations History of Present Illness HPI Narrative: 43-year-old female smoker and heavy alcohol abuser presents with her mother and a chief complaint of request for medical clearance prior to alcohol detox. She has not contacted any facilities and states she has never been to rehab before. She drinks quite a few beverages daily but is unclear exactly how much. She has been through withdrawals before. She has very little in the way of symptoms today but does admit to a mild headache and some nausea. She has no agitation and denies any resting tremor. Her last drink was about an hour prior to her arrival. MD complaint: medical clearance requested Onset (ago): hour(s) Place: home Alleged Intoxication: Yes Compliant with Home Medications: Yes Traumatic Symptoms: denies traumatic injury Associated Symptoms: headaches and nausea/vomiting Treatments Prior to Arrival: none Previous Rx's Medication Instructions Recorded chlordiazepoxide HCl See Rx Instructions .ROUTE 11/18/18 .COMPLEX PRN #32 cap Allergies Allergy/AdvReac Type Severity Reaction Status Date / Time oxycodone [From Percocet] Allergy Intermediate Rash Verified 11/18/18 17:25 Review of Systems Constitutional Denies chills, Reports fatigue, Denies fever(s), Reports headache(s), Denies lethargy and Denies weakness Eyes Denies change in vision, Denies eye discharge, Denies irritation and Denies loss of vision ENT Ears, Nose, Mouth, and Throat: Denies change in voice, Reports headache(s), Denies neck pain and Denies sore throat Cardiovascular Denies chest pain, Denies irregular heart rhythm, Denies lightheadedness, Denies palpitations, Denies dyspnea, Denies dyspnea on exertion and Denies orthopnea Respiratory Denies cough, Denies dyspnea, Denies dyspnea on exertion and Denies wheezing Gastrointestinal Gastrointestinal: Denies abdominal pain, Denies change in bowel habits, Denies diarrhea, Reports nausea and Denies vomiting Genitourinary Denies hematuria, Denies flank pain, Denies urinary incontinence and Denies urinary urgency Musculoskeletal Denies neck pain Integumentary/Breasts Denies pruritus, Denies erythema, Denies rash and Denies wounds Neurologic Denies confusion, Reports headache(s), Denies loss of vision and Denies weakness Psychiatric Denies anxiety, Denies confusion, Denies depression, Denies homicidal ideation and Denies suicidal ideation Endocrine Reports fatigue and Denies palpitations Hematologic/Lymphatic Denies easy bruising Allergic/Immunologic Denies wheezing FORMERLY [facility], 1928–1983 Medical History Alcoholic pancreatitis (Acute) Migraine (Acute) ETOH abuse (Acute) Alcoholic ketoacidosis (Acute) Esophagitis (Acute) Pancreatic pseudocyst (Acute) Surgical History History of biliary duct stent placement (Acute) Social History household members: spouse Smoking Status: Current every day smoker Social History household members: spouse Smoking Status: Current every day smoker Exam Narrative Exam Narrative: GENERAL: 43-year-old female appears older than stated age, she is a bit disheveled, smells of alcohol but speaking clearly without slurring her words and of clear and sound mind HEAD: Atraumatic. Normocephalic. No temporal or scalp tenderness. EYES: Pupils equal round and reactive. Extraocular motions intact. No scleral icterus. No injection or drainage. ENT: Nose without bleeding, purulent drainage or septal hematoma. Throat without erythema, tonsillar hypertrophy or exudate. Uvula midline. Airway patent. NECK: Trachea midline. No JVD or lymphadenopathy. Supple, nontender, no meningeal signs. CARDIOVASCULAR: Regular rate and rhythm without murmurs, gallops, or rubs. RESPIRATORY: Clear to auscultation. Breath sounds equal bilaterally. No wheezes, rales, or rhonchi. GASTROINTESTINAL: Abdomen soft, non-tender, nondistended. No hepato- splenomegaly, or palpable masses. No guarding. EXTREMITIES: No clubbing, cyanosis, or edema. No joint tenderness, effusion, or edema noted. BACK: Nontender without deformity or crepitance. No flank tenderness. NEURO: AOx3. SKIN: No rash or erythema. Initial Vital Signs Initial Vital Signs: Vital Signs Temperature 98.9 F 11/18/18 17:22 Pulse Rate 130 H 11/18/18 17:22 Respiratory Rate 18 11/18/18 17:22 Blood Pressure 170/104 H 11/18/18 17:22 Pulse Oximetry 96 11/18/18 17:22 MDM - Medical Clearance Lab Data Result diagrams: 11/18/18 17:35 11/18/18 17:35 Lab Results 11/18/18 11/18/18 11/18/18 Range/Units 17:35 17:35 17:35 WBC 7.3 (4.5-11.0) X10^3/uL RBC 3.50 L (4.0-5.2) X10^6/uL Hgb 12.0 (12.0-16.0) g/dL Hct 35.2 L (36-46) % MCV 100.7 H (80-100) fL MCH 34.4 H (26-34) PG MCHC 34.2 (30-36) % RDW 14.1 (11.6-14.8) % Plt Count 415 H (150-400) X10^3/uL Neut % (Auto) 64.4 (50-75) % Lymph % (Auto) 23.2 L (25-40) % Dubois % (Auto) 8.1 (3-14) % Eos % (Auto) 2.8 (2-4) % Baso % (Auto) 1.5 (0-2) % Neut # (Auto) 4700 (5399-5445) /uL Lymph # (Auto) 1700 (8911-1204) /uL Dubois # (Auto) 600 (0-900) /uL Eos # (Auto) 200 (0-450) /uL Baso # (Auto) 100 (0-100) /uL Sodium 143 (137-145) mmol/L Potassium 3.4 (3.4-5.1) mmol/L Chloride 100 (98-107) mmol/L Carbon Dioxide 22 (22-32) mmol/L BUN 12 (7-17) mg/dL Creatinine 0.80 (0.52-1.04) mg/dL Estimated GFR > 60.0 (>60) mL/min BUN/Creatinine Ratio 15.0 (6-22) Glucose 95 (70-100) mg/dL Calcium 8.9 (8.4-10.2) mg/dL Total Bilirubin 0.5 (0.2-1.3) mg/dL AST 74 H (14-36) IU/L ALT 63 H (9-52) IU/L Alkaline Phosphatase 78 (38-126) U/L Total Protein 7.9 (6.3-8.2) g/dL Albumin 4.8 (3.5-5.0) g/dL Globulin 3.1 (1.7-4.1) g/dL Albumin/Globulin Ratio 1.5 (1.0-2.8) Lipase (23-300) U/L TSH 2.18 (0.47-4.68) uIU/mL Free T4 1.07 (0.78-2.19) ng/dL Urine RBC (0-5/HPF) Urine WBC (0-5/HPF) Urine Bacteria (None) Ur Culture Indicated? Salicylates < 1.0 (<20) mg/dL Urine Opiates Screen (Negative) Ur Oxycodone Screen (Negative) Urine Methadone Screen (Negative) Acetaminophen < 10 L (10-30) ug/mL Ur Barbiturates Screen (Negative) U Tricyclic Antidepress (Negative) Ur Phencyclidine Scrn (Negative) Ur Amphetamines Screen (Negative) U Methamphetamines Scrn (Negative) Ur MDMA Scrn (Ecstasy) (Negative) U Benzodiazepines Scrn (Negative) Urine Cocaine Screen (Negative) U Marijuana (THC) Screen (Negative) Ethyl Alcohol 274 mg/dL 11/18/18 11/18/18 11/18/18 Range/Units 17:35 19:30 19:30 WBC (4.5-11.0) X10^3/uL RBC (4.0-5.2) X10^6/uL Hgb (12.0-16.0) g/dL Hct (36-46) % MCV (80-100) fL MCH (26-34) PG MCHC (30-36) % RDW (11.6-14.8) % Plt Count (150-400) X10^3/uL Neut % (Auto) (50-75) % Lymph % (Auto) (25-40) % Dubois % (Auto) (3-14) % Eos % (Auto) (2-4) % Baso % (Auto) (0-2) % Neut # (Auto) (2608-3289) /uL Lymph # (Auto) (5329-2973) /uL Dubois # (Auto) (0-900) /uL Eos # (Auto) (0-450) /uL Baso # (Auto) (0-100) /uL Sodium (137-145) mmol/L Potassium (3.4-5.1) mmol/L Chloride (98-107) mmol/L Carbon Dioxide (22-32) mmol/L BUN (7-17) mg/dL Creatinine (0.52-1.04) mg/dL Estimated GFR (>60) mL/min BUN/Creatinine Ratio (6-22) Glucose (70-100) mg/dL Calcium (8.4-10.2) mg/dL Total Bilirubin (0.2-1.3) mg/dL AST (14-36) IU/L ALT (9-52) IU/L Alkaline Phosphatase (38-126) U/L Total Protein (6.3-8.2) g/dL Albumin (3.5-5.0) g/dL Globulin (1.7-4.1) g/dL Albumin/Globulin Ratio (1.0-2.8) Lipase 28 (23-300) U/L TSH (0.47-4.68) uIU/mL Free T4 (0.78-2.19) ng/dL Urine RBC None seen (0-5/HPF) Urine WBC 5-10/hpf H (0-5/HPF) Urine Bacteria Many (>30) H (None) Ur Culture Indicated? Specimen cultured Salicylates (<20) mg/dL Urine Opiates Screen Negative (Negative) Ur Oxycodone Screen Negative (Negative) Urine Methadone Screen Negative (Negative) Acetaminophen (10-30) ug/mL Ur Barbiturates Screen Negative (Negative) U Tricyclic Antidepress Negative (Negative) Ur Phencyclidine Scrn Negative (Negative) Ur Amphetamines Screen Positive H (Negative) U Methamphetamines Scrn Positive H (Negative) Ur MDMA Scrn (Ecstasy) Negative (Negative) U Benzodiazepines Scrn Negative (Negative) Urine Cocaine Screen Negative (Negative) U Marijuana (THC) Screen Positive H (Negative) Ethyl Alcohol mg/dL Point of Care Testing Test Results Negative Urine Dip Bedside Urine Glucose Negative Bedside Urine Bilirubin - Negative Bedside Urine Ketone ++ 40 Urine Specific [place] 1.025 Bedside Urine Occult Blood +/- Bedside Urine pH 6.0 Bedside Urine Protein + 30 Bedside Urine Urobilinogen +/- 1mg Bedside Urine Nitrite + Positive Bedside Urine Leukocytes ++ 125 Esterase MDM Narrative Medical decision making narrative: CIWA-Ar for Alcohol Withdrawal from [email or web address] on 11/19/2018 All calculations should be rechecked by clinician prior to use RESULT SUMMARY: 3 points Patients with scores ?8 typically do not require medication for withdrawal. INPUTS: Nausea/vomiting ?> 1 = Mild nausea and no vomiting Tremor ?> 0 = No tremor Paroxysmal sweats ?> 0 = No sweat visible Anxiety ?> 0 = No anxiety, at ease Agitation ?> 0 = Normal activity Tactile disturbances ?> 0 = None Auditory disturbances ?> 0 = Not present Visual disturbances ?> 0 = Not present Headache/fullness in head ?> 2 = Mild Orientation/clouding of sensorium ?> 0 = Oriented, can do serial additions Chronic alcohol abuser requesting clearance for detox facility. She has a very low CIWA score and is not demonstrating any withdrawal symptoms. There are no available beds at possible facility this evening, patient given Ativan to help her through the night as well as a prescription for Librium taper to be taken tomorrow. She and mother have had their questions answered to their apparent satisfaction Discharge Plan Departure Patient Disposition: Home Clinical Impression: ETOH abuse Alcohol withdrawal syndrome Qualifiers: Complication of substance-induced condition: with unspecified complication Qualified Code(s): F10.239 - Alcohol dependence with withdrawal, unspecified Discharge Date/Time: 11/18/18 21:47 Interventions: ED Discharge Assessment Last Done: 11/18/18 21:46 Instructions: Alcohol Use Disorder Activity Restrictions/Additional Instructions: *You have been diagnosed with [alcohol abuse, possible early withdrawal] *What to do: *Take medications as directed *Follow up with your primary care provider in 2-3 days, call for an appointment. Let them know you were seen in the Emergency Department and that we ask that you be seen in follow up *Return to ER if you should have any new, worsening or concerning symptoms Prescriptions: New chlordiazepoxide HCl 25 mg capsule See Rx Instructions .ROUTE .COMPLEX PRN (Reason: alcohol withdrawal) Qty: 32 RF: 0 Referrals: Alcohol [facility] [Outside] [facility] [Outside] [facility] [Outside] [facility] [Outside] Zakia Salinas, ARTIST [employer]PARATION [Primary Care Provider] -
== END 2018-11-18 21:47 | disposition home or self-care (01) ==
PROVIDERS: Emergency Medicine; Emergency Provider Emergency Medicine; Family Provider Nurse Practitioner Gerontology; PCP Nurse Practitioner Gerontology
DX: F10.10 Alcohol abuse, uncomplicated (principal); Y90.8 Blood alcohol level of 240 mg/100 ml or more
CPT/HCPCS: 36591; 80053; 80305; 80320; 80329; 81003; 81015; 81025; 83690; 84439; 84443; 85025; 87077; 87086; 87186; 96361; 96372; 96374; 96375; 99283; 99284; G0480; J2060; J2405

== ENCOUNTER → 2020-11-29 10:04 | Outpatient (CLI) | payer OTHER, MEDICAID, SELFPAY ==
[2018-08-23 14:25] VITALS: BMI 18.9
[2020-11-29 10:14] LABS: Bacteria Urine None Seen; RBC Urine None Seen (0-5/HPF); WBC Urine None Seen (0-5/HPF)
[2020-11-29 10:59] LABS: Hematocrit 40.4 % (36-46); Mean Corpuscular HGB Conc 34.5 % (30-36); Mean Corpuscular Hemoglobin 31.2 PG (26-34); Mean Corpuscular Volume 90.2 fL (80-100); Platelet Count 289 X10^3/uL (150-400); Red Blood Cell Count 4.48 X10^6/uL (4.0-5.2); Red Cell Distribution Width 13.1 % (11.6-14.8); White Blood Cell Count 7.6 X10^3/uL (4.5-11.0)
[2020-11-29 11:26] LABS: Neutrophils Absolute Manual 5092 /uL (3000-5900); RBC Morphology Normal Morphology; Total Cells Counted 100
[2020-11-29 11:36] LABS: Appearance Urine UA CLEAR; Bilirubin Urine UA NEGATIVE (NEGATIVE); Color Urine UA YELLOW; Glucose Urine UA NEGATIVE (Negative); Ketones Urine UA NEGATIVE (NEGATIVE); Leukocyte Esterase Urine UA NEGATIVE (NEGATIVE); Nitrite Urine UA NEGATIVE (Negative); Occult Blood Urine UA NEGATIVE (Negative); Protein Urine UA NEGATIVE (Negative); Specific Gravity Urine UA <=1.005 (1.000-1.035); Urobilinogen Urine UA 0.2 E.U./dL (0.2)
[2020-11-29 11:41] LABS: Alanine Aminotransferase 15 IU/L (<35); Albumin 4.7 g/dL (3.5-5.0); Albumin Globulin Ratio 1.6 (1.0-2.8); Alkaline Phosphatase 52 U/L (38-126); Aspartate Aminotransferase 23 IU/L (14-36); BUN Creatinine Ratio 10.2 (6-22); Bilirubin Total 0.3 mg/dL (0.2-1.3); Blood Urea Nitrogen 9 mg/dL (7-17); Calcium 9.8 mg/dL (8.4-10.2); Carbon Dioxide 27 mmol/L (22-32); Chloride 103 mmol/L (98-107); Cholesterol 267 mg/dL (140-199); Estimated Glomerular Filt Rate > 60.0 mL/min (>60); Glucose 92 mg/dL (70-100); HDL Cholesterol 60 mg/dL (40-60); HEMOLYSIS < 15 (0-50); LDL Cholesterol Calculated 176 mg/dL (<100); Potassium 4.2 mmol/L (3.4-5.1); Sodium 139 mmol/L (137-145); Total Protein 7.7 g/dL (6.3-8.2); Triglycerides 155 mg/dL (35-150)
[2020-11-29 11:43] LABS: Culture Indicated Urine Cult Not Indicated; Urine Comments Microscopic Normal
[2020-11-29 11:58] LABS: Free T3, Triiodothyronine Free 3.47 pg/mL (2.77-5.27); Free T4, Direct Thyroxine 1.18 ng/dL (0.78-2.19)
[2020-11-29 12:12] LABS: Thyroid Stimulating Hormone 1.21 uIU/mL (0.47-4.68)
== END ==
PROVIDERS: Family Provider Nurse Practitioner Gerontology; PCP Nurse Practitioner; Referring Provider Nurse Practitioner; Visit Provider Nurse Practitioner
DX: Z00.00 Encounter for general adult medical examination without abnormal findings (principal); R30.0 Dysuria; R32 Unspecified urinary incontinence
CPT/HCPCS: 36415; 80053; 80061; 81001; 84439; 84443; 84481; 85025

== ENCOUNTER → 2021-01-17 13:16 | Outpatient (CLI) | payer OTHER, MEDICAID, SELFPAY ==
[2018-08-23 14:25] VITALS: BMI 18.9
--- NOTE | 2021-01-17 13:17 | DI.US.S_ITS ---
LIMITED ULTRASOUND OF LEFT BREAST: 01/17/2021 CLINICAL: Palpable left breast lumps, scattered at IMF. Comparison is made to exam dated: 01/17/2021 [facility]. Real-time ultrasound of the left breast 4-8 o'clock region was performed. Laughlin scale images of the real-time examination were reviewed. No significant abnormalities were seen sonographically in the left breast. Specifically, no finding to correspond to the patient's inferior left breast palpable abnormalities. IMPRESSION: NEGATIVE There are no abnormalities seen to correspond with the palpable nodularities in the lower aspect of the left breast. Palpable abnormalities are most consistent with normal fibroglandular tissue. Return to annual mammogram screening schedule is recommended. Findings of normal left breast tissue and recommendations were conveyed to the patient at time of exam. This exam was interpreted at Station ID: [id number]. Electronically Signed By: Carolina walters/:01/17/2021 14:53:08 Ultrasound BI-RADS: 1 Negative
--- NOTE | 2021-01-17 13:17 | DI.US.S_ITS ---
LIMITED ULTRASOUND OF RIGHT BREAST: 01/17/2021 CLINICAL: Palpable right breast lumps. Comparison is made to exam dated: 01/17/2021 [facility]. Color flow and real-time ultrasound of the right breast 4-7 o'clock, and retroareolar regions were performed. Laughlin scale images of the real-time examination were reviewed. There is a 0.7 cm x 0.8 cm x 0.5 cm oval cyst with a smooth internal wall in the right breast at 9 o'clock middle depth 3 cm from the nipple. This oval cyst is hypoechoic with an abrupt boundary, internal echoes, and posterior acoustic enhancement. This correlates well with mammography findings. Color flow imaging demonstrates that there is no vascularity present. There also is a 0.7 cm x 0.6 cm x 0.3 cm oval area of possible focal fibroglandular tissue with an indistinct and non-circumscribed margin in the right breast at 6 o'clock posterior depth 7 cm from the nipple. This area of tissue is hypoechoic with no posterior acoustic shadowing or enhancement, nearly isoechoic to adjacent glandular tissue. Color flow imaging demonstrates that there is an adjacent vascularity. This is probably an incidental finding as it does not correlate well in size or morphology with mammogram. IMPRESSION: PROBABLY BENIGN The 0.8 cm cyst in the right breast at 8 o'clock middle depth correlates with one mammogram finding, but does not correlate with palpable abnormality, likely represents a complicated cyst and is probably benign. The incidental 0.7 cm focal area of fibroglandular tissue in the right breast at 6 o'clock posterior depth most likely is focal benign glandular tissue, possible fibroadenoma and is probably benign. A follow-up right ultrasound in 6 months is recommended to demonstrate stability of both findings. Findings and recommendations were conveyed to the patient at time of exam. This exam was interpreted at Station ID: [id number]. Electronically Signed By: Carolina walters/:01/17/2021 15:01:35 letter sent: Followup Recommended Ultrasound BI-RADS: 3 Probably benign
--- NOTE | 2021-01-17 13:17 | DI.MG.S_ITS ---
BILATERAL DIGITAL DIAGNOSTIC MAMMOGRAM 3D/2D: 01/17/2021 CLINICAL: Baseline. Bilateral breast lumps and pain. No prior exams were available for comparison. The tissue of both breasts is heterogeneously dense. This may lower the sensitivity of mammography. There is a 9 mm oval low density asymmetry with a circumscribed margin in the right breast central to the nipple middle depth. There also is a 1.1 cm oval asymmetry with an indistinct and circumscribed margin in the right breast posterior depth inferior region seen on the mediolateral oblique view only. No finding to correspond to the patient's palpable abnormalities in the left breast. No other significant masses, calcifications, or other findings are seen in either breast. IMPRESSION: INCOMPLETE: NEEDS ADDITIONAL IMAGING EVALUATION The 9 mm oval low density asymmetry in the right breast central to the nipple middle depth is indeterminate. The 1.1 cm oval asymmetry in the right breast posterior depth inferior region seen on the mediolateral oblique view only is indeterminate. There is no mammographic correlate to the patient's palpable abnormalities in the left breast. Bilateral breast ultrasound is recommended for full evaluation of these areas. This was performed immediately following this exam. This exam was interpreted at Station ID: [id number]. NOTE: For mammograms, a report in lay terms will be sent to the patient. Approximately 15% of breast malignancies will not be visualized mammographically. In the management of a palpable breast mass, a negative mammogram must not discourage biopsy of a clinically suspicious lesion. Electronically Signed By: Carolina walters/:01/17/2021 14:09:30 ACR BI-RADS Category 0: Incomplete [id number]
== END ==
PROVIDERS: Family Provider Nurse Practitioner Gerontology; PCP Nurse Practitioner; Referring Provider Nurse Practitioner; Visit Provider Nurse Practitioner
DX: N63.10 Unspecified lump in the right breast, unspecified quadrant (principal); N63.20 Unspecified lump in the left breast, unspecified quadrant; N64.4 Mastodynia; R92.8 Other abnormal and inconclusive findings on diagnostic imaging of breast; N60.01 Solitary cyst of right breast
CPT/HCPCS: 76642; 77066; G0279

== ENCOUNTER → 2021-02-21 10:44 | Outpatient (CLI) | payer OTHER, MEDICAID, SELFPAY ==
[2018-08-23 14:25] VITALS: BMI 18.9
--- NOTE | 2021-02-21 10:47 | DI.MRI.S_ITS ---
PROCEDURE: MR CERVICAL SPINE WO/W CON INDICATIONS: Loss of strength arms, hands bilaterally L>R, pain neck, schmitz TECHNIQUE: Noncontrast sagittal T1 spin echo and T2 fast spin echo, sagittal STIR, foraminal oblique sagittal T2 fast spin echo, axial gradient echo or T2 fast spin echo through the cervical spine. After the administration of contrast, axial and sagittal T1 spin echo with fat saturation through the cervical spine. COMPARISON: [facility], , SPINE CERVICAL 1VW, 09/03/2011, 9:24. [facility], , SPINE CERVICAL 1VW, 09/03/2011, 10:53. FINDINGS: Image quality: Excellent. Alignment and curvature: There is trace C2-C3 anterolisthesis. Bones: Postsurgical changes compatible C5-C6 ACDF noted. Minimal reactive endplate changes noted adjacent to the C6-C7 disc. No suspicious postcontrast enhancement. Spinal cord: Visualized spinal cord has normal size and signal. No cerebellar tonsillar herniation. No abnormal intramedullary enhancement. Paraspinous soft tissues: No paravertebral masses or suspicious enhancement. C2-3: Loss of disc signal. No central stenosis. Mild right and moderate left facet hypertrophy. Mild right and moderate left neural foraminal narrowing. No neural compression. C3-4: Loss of disc signal. Mild, diffuse disc bulge. Mild bilateral facet hypertrophy. Mild narrowing of the central canal. Moderate right and mild left neural foraminal narrowing. No neural compression. C4-5: Loss of disc signal. Mild to moderate diffuse disc bulge. Mild bilateral facet hypertrophy. Mild bilateral uncovertebral joint hypertrophy. Mild narrowing of the central canal. Moderate bilateral neural foraminal narrowing. No neural compression. C5-6: Status post discectomy and fusion. No central stenosis. Mild bilateral facet hypertrophy. Mild bilateral neural foraminal narrowing. No neural compression. C6-7: Loss of disc signal and slight loss of disc height. Moderate, diffuse disc bulge. Mild bilateral facet hypertrophy. Moderate bilateral uncovertebral joint hypertrophy. Moderate narrowing of the central canal. Severe right and moderate left neural foraminal narrowing with compression of the exiting right C7 nerve root. C7-T1: Loss of disc signal. No central stenosis. No neural foraminal narrowing. No neural compression IMPRESSION: 1. Status post C5-C6 ACDF. 2. Multilevel degenerative disc disease. 3. Multilevel facet arthropathy. 4. No severe central canal narrowing. 5. Severe right C6-C7 neural foraminal narrowing with compression of the exiting right C7 nerve root. Please correlate with clinical data. 6. No suspicious postcontrast enhancement. Dictated by: Estrella Allen MD, PhD on 02/21/2021 at 14:45 Approved by: Estrella Allen MD, PhD on 02/21/2021 at 14:50
== END ==
PROVIDERS: Family Provider Nurse Practitioner Gerontology; PCP Nurse Practitioner; Referring Provider Nurse Practitioner; Visit Provider Nurse Practitioner
DX: M79.641 Pain in right hand (principal); M79.642 Pain in left hand; M79.601 Pain in right arm; M79.602 Pain in left arm; R53.1 Weakness; Z98.1 Arthrodesis status; M50.31 Other cervical disc degeneration, high cervical region; M48.02 Spinal stenosis, cervical region; M47.812 Spondylosis without myelopathy or radiculopathy, cervical region
CPT/HCPCS: 72156

== ENCOUNTER → 2021-04-18 11:34 | Outpatient (CLI) | payer OTHER, MEDICAID, SELFPAY ==
[2021-02-28 10:01] VITALS: BMI 18.9
[2021-04-18 13:27] LABS: COVID19 -Nasal RAPID Negative (Negative)
== END ==
PROVIDERS: Family Provider Nurse Practitioner Gerontology; PCP Nurse Practitioner; Visit Provider Obstetrics & Gynecology
DX: Z01.812 Encounter for preprocedural laboratory examination (principal); Z20.822 Contact with and (suspected) exposure to COVID-19
CPT/HCPCS: 87635

== ENCOUNTER 2021-04-19 13:28 | Day surgery (SDC) | payer OTHER, MEDICAID, SELFPAY ==
[2021-02-28 10:01] VITALS: BMI 18.9
[2021-04-16 14:55] VITALS: BMI 20.8
[2021-04-19] VITALS (8 sets, daily range): BP systolic 84–124; BP diastolic 54–81; PULSE 67–86; RESP 10–16; TEMP 37.2; O2SAT 97–100; BMI 20.8
--- NOTE | 2021-04-19 | PATH_ITS ---
[facility] Accession Number: [id number] . 01 Material submitted: . PART A: cervix - LEEP CUT AT 1200 PART B: endocervix - ECC . 02 Diagnosis: A. LEEP Cut at 12 o'clock, Cervix: High-grade squamous intraepithelial lesion / PAULINE-2 present in the 9 to 12 o'clock quadrant and as several small foci (some detached) in the 12 to 3 o'clock and 3 to 6 o'clock quadrants. Gland extension of PAULINE-2 is present in the 9-12 o'clock quadrant. The apparent endocervical margin is indeterminate for involvement by high grade dysplasia; blue ink is focally present on detached fragments of dysplastic mucosa involved by PAULINE-2 in the 12-3 and 3-6 o'clock quadrants. Patchy regions of low-grade squamous intraepithelial lesion / PAULINE-1 are present in the 3 to 6 o'clock and 6 to 9 o'clock quadrants; The endocervical margin appears to be involved by low grade squamous intraepithelial lesion / PAULINE-1 in the 6-9 o'clock quadrant. The apparent ectocervical margin is indeterminate for involvement by high grade dysplasia; tissue disruption is obscuring in the 9-12 o'clock quadrant. No invasive tumor identified. . B. ECC: Avulsed portions of squamous mucosa involved by high-grade squamous intraepithelial lesion / PAULINE-2 and separate fragments of squamous mucosa involved by low-grade squamous intraepithelal lesion / PAULINE-1. Strips of endocervical glandular epithelium; negative for glandular dysplasia or malignancy. [facility] 04/23/2021 1355 Local . 02 Comment: The biopsy results correlate with Pap smear [id number]. . 02 Electronically signed: . Gabriela Mcdaniel MD, Pathologist NPI- [id number] . 01 Gross description: . A. Received in formalin labeled with the patient's name and LEEP is a 0.8 cm thick LEEP specimen with a central 0.9 x 0.4 cm slit-like os surrounding by a complete 2.0 cm rim of cervix. The specimen is cut and designated 12 o'clock. The ectocervical mucosa is claudio-white and smooth with focal granularity. The endocervical margin is inked blue, and the ectocervical and stromal margins are inked black. The specimen is radially sectioned and entirely submitted as follows: . A1 - 12 o'clock to 3 o'clock. A2-A3 - 3 o'clock to 6 o'clock. A4-A5 - 6 o'clock to 9 o'clock. A6-A7 - 9 o'clock to 12 o'clock. . B. Received in formalin labeled with the patient's name and ECC are multiple claudio-brown soft tissue fragments measuring 1.0 x 0.5 x 0.3 cm in aggregate. The specimen is entirely submitted in cassette B1. (DALIA:[id number]) /[facility] 04/20/[address] [place] [address] . 02 Pathologist provided ICD-10: N87.0, N87.1 . 02 CPT . 293048, [id number] Performed at: 01 [facility] [address] [id number] MD Juan Ramirez MD Phone: [phone] Performed at: 02 [facility] [address] [place] [id number] MD Zakia Valles MD Phone: [phone]
[2021-04-19] MEDS: LACTATED RINGERS 1,000 ML 42 ML IV ×2 (13:38→17:43)
--- NOTE | 2021-04-19 14:56 | PM.PREOP ---
Pre-operative Note COVID-19 COVID-19 status: Negative Result date/Date tested (Pos, Neg/Pending): 04/18/21 Interval Note History & Physical reviewed/Exam performed by Physician: Yes Changes to H&P: No
--- NOTE | 2021-04-19 16:23 | SUR.OPER ---
Lithotomy on padded OR bed, head on pillow, arms secured on padded arm boards at <90 degrees abduction. Legs secured in padded yellow fins stirrups.
--- NOTE | 2021-04-19 17:04 | P.OP_ITS ---
Operative Date/Time/Diagnoses Date of procedure: 04/19/21 Time of procedure: 16:20 Pre-op diagnosis: HGSIL of the cervix Post-op diagnosis: same Procedure & Clinicians Procedure: Procedures Operation Date: 04/19/21 14:30 Actual Procedure Side Surgeon p LEEP Not Applicable Albaro Rodriguez MD Indications: Cristal is a 45 yo , LMP with HGSIL and AWE extending significantly beyond the TZ who is scheduled for LEEP with laser vaporization of the cervical AWE changes on the portio today in the Main OR of [facility].? She presents now for her scheduled surgery. Surgeon: Albaro Rodriguez Anesthesia Type: General Operative Notes Findings: Well defined AWE @ TZ with AWE extending onto the anterior lip of the cervix between 1:00 and 10:00 and 5:00 - 7:00 on the posterior lip. All AWE removed or destroyed with monopolar current. Closure Type: not applicable Specimen(s): other (LEEP cone and ECC) Estimated blood loss (mL): 10 Blood products transfused: none Procedure in detail: With the patient under satisfactory general anesthesia in the modified dorsal lithotomy position, the perineum and lower abdomen were prepped and draped in the usual manner for LEEP. A pre-surgical safety time-out was then taken in accordance with [facility] protocols. A LEEP speculum was then inserted into the vaginal canal and the cervix easily visualized. Copious amounts of vinegar were used to developed all areas of aceto-white epithelium and the areas extending out onto the portio were circumscribed with judicious use of monopolar current. At that point the LEEP was performed using a 20 x 10 mm loop electrode. The specimen contained the entire transformation zone, was cut at 12:00, was submitted in formalin for pathologic examination. The ECC was then obtained with a Kevorkian box curette and submitted as a separate p athologic specimen. The LEEP cone bed was then rendered hemostatic with judicious use of monopolar coagulation current. Hemostasis was complete at the completion of that portion of the case. Monopolar current was then used to coagulate all the areas of aceto-white epithelium that had been circumscribed previously. The CO2 laser was not available due to equipment issues which could not be resolved so as to be able to use the laser in a safe manner. The area of the cone as well as the areas of AWE destruction on the anterior and posterior lips were then carefully evaluated and all were completely hemostatic. At that point the LEEP speculum was removed from the vagina and the patient awakened from general anesthesia. She was then transferred to the PACU for a period of observation in recovery after having tolerated the procedure well. Complications: none Post-operative Condition: stable Disposition: PACU Plan for aftercare: Routine postoperative care. Written discharge instructions provided. Patient be contacted with LEEP cone pathology results once available.
--- NOTE | 2021-04-19 17:43 | SUR.PHASEI ---
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
== END 2021-04-19 18:13 | disposition home or self-care (01) ==
PROVIDERS: Family Provider Nurse Practitioner Gerontology; PCP Nurse Practitioner; Referring Provider Obstetrics & Gynecology; Visit Provider Obstetrics & Gynecology
PROC: 0UBC7ZZ Excision of Cervix, Via Natural or Artificial Opening (ICD-10-PCS; CPT 57522; principal; 2021-04-19 14:30)
DX: N87.1 Moderate cervical dysplasia (principal); N87.0 Mild cervical dysplasia; F17.210 Nicotine dependence, cigarettes, uncomplicated
CPT/HCPCS: 57522; J1100; J1885; J2250; J2405; J2704; J3010

== ENCOUNTER → 2024-06-23 16:18 | Outpatient (CLI) | payer OTHER, SELFPAY ==
[2021-02-28 10:01] VITALS: BMI 18.9
--- NOTE | 2024-06-23 16:20 | DI.MRI.S_ITS ---
PROCEDURE: MR LUMBAR SPINE WO CON INDICATIONS: STRAIN OF LUMBAR REGION TECHNIQUE: Noncontrast sagittal T1 spin echo and T2 fast echo, sagittal STIR, and T2 fast spin echo through the lumbar spine. In cases with scoliosis, additional coronal T2 fast spin echo may be performed. COMPARISON: None. FINDINGS: Image quality: Diagnostic, with note made of motion artifact. Alignment and Curvature: There is normal bony alignment. Bone Marrow: Marrow is of normal overall signal. No acute vertebral body compression fractures. Spinal Cord: Conus medullaris terminates at the L1 level. Visualized cord demonstrates normal signal and size. Paraspinous Soft Tissues: No paravertebral masses. T12-L1: Normal appearance. L1-L2: Normal appearance. L2-L3: No significant abnormality is seen. L3-L4: Mild loss of disc height is seen. Loss of disc signal is seen. Mild to moderate disc bulge is seen. There is a superimposed central disc protrusion. Mild to moderate facet hypertrophy can be seen. Moderate bilateral neural foraminal narrowing is seen. Mild central canal narrowing is seen. L4-L5: Mild loss of disc height is seen. Loss of disc signal is seen. Mild to moderate disc bulge is seen, with a central/right disc extrusion, with inferior migration of the disc material. There is a focal annular fissure seen posteriorly. There is a sequestered disc fragment seen posterior to the L5 vertebral body, as on series 2, image 6, measuring 7 mm craniocaudal. Moderate bilateral neural foraminal narrowing is seen. Mild to moderate central canal narrowing is seen. The extruded disc fragment demonstrates mild mass effect upon the transiting right S1 nerve roots. L5-S1: The disc height and disk signal are well-preserved. Minimal disc bulge is seen. There is moderate right-sided and mild left-sided facet hypertrophy. There is [id number] right-sided and no left-sided neural foraminal narrowing. No central canal narrowing is seen. IMPRESSION: At the L4-L5 level, there is a central/right disc extrusion, with a 7 mm sequestered disc fragment. Dictated by: Evan Mitchell M.D. on 06/23/2024 at 18:00 Approved by: Evan Mitchell M.D. on 06/23/2024 at 18:03
== END ==
PROVIDERS: Family Provider Nurse Practitioner Gerontology; PCP Nurse Practitioner; Referring Provider Physician Assistant Medical; Visit Provider Physician Assistant Medical
DX: S39.012A Strain of muscle, fascia and tendon of lower back, initial encounter (principal); M51.26 Other intervertebral disc displacement, lumbar region; M47.816 Spondylosis without myelopathy or radiculopathy, lumbar region; M47.817 Spondylosis without myelopathy or radiculopathy, lumbosacral region; X58.XXXA Exposure to other specified factors, initial encounter
CPT/HCPCS: 72148